=== PATIENT | male | born 1955 | race Caucasian/White ===

== ENCOUNTER 2019-08-16 13:26 | Outpatient (CLI) | payer BC ==
[~2019-08-16 13:26] MED LIST: ALBUTEROL NEB 2.5 MG/3 ML INH SCH
== END 2019-08-16 13:27 | disposition home or self-care (01) ==
LOC: RT 13:26
PROVIDERS: ATTEND Nurse Practitioner
DX: J45.909 Unspecified asthma, uncomplicated (principal)
CPT/HCPCS: 94060; 94664

== ENCOUNTER 2019-09-13 08:04 | Outpatient (CLI) | payer BC ==
[2019-09-13 09:14] LABS: ALBUMIN 3.9 g/dL (3.2-5.5); ALBUMIN/GLOBULIN RATIO 1.1 (1.0-2.2); ALKALINE PHOSPHATASE 49 IU/L (42-121); ALT ALANINE AMINOTRANSFERASE 36 IU/L (10-60); AST ASPARTATE AMINOTRANSFERASE 22 IU/L (10-42); BASOPHILS # (AUTO) 0.1 10^3/uL (0.0-0.1); BASOPHILS % (AUTO) 0.9 %; BILIRUBIN,TOTAL 1.1 mg/dL (0.2-1.0); BUN - BLOOD UREA NITROGEN 22 mg/dL (6-20); CALCIUM 9.3 mg/dL (8.5-10.3); CARBON DIOXIDE - CO2 33 mmol/L (21-32); CHLORIDE 99 mmol/L (101-111); CHOL/HDL RATIO 4.9 (<5.0); CHOLESTEROL 197 mg/dL; CREATININE 0.9 mg/dL (0.6-1.2); EOSINOPHILS # (AUTO) 0.2 10^3/uL (0.0-0.7); EOSINOPHILS % (AUTO) 2.1 %; GFR - MDRD 86 (>89); GLUCOSE 134 mg/dL (70-100); HDL CHOLESTEROL 40 mg/dL; HGB - HEMOGLOBIN 17.4 g/dL (14.0-18.0); LDL CHOLESTEROL,CALCULATED 140 mg/dL; LDL/HDL RATIO 3.5 (<3.6); LYMPHOCYTES % (AUTO) 19.4 %; MEAN CORPUSCULAR HEMOGLOBIN 31.4 pg (27.0-31.0); MEAN CORPUSCULAR HGB CONC 33.1 g/dL (32.0-36.0); MEAN CORPUSCULAR VOLUME 94.9 fL (80.0-94.0); MEAN PLATELET VOLUME 9.9 fL (7.4-11.4); MONOCYTES # (AUTO) 0.9 10^3/uL (0.0-1.0); MONOCYTES % (AUTO) 8.4 %; NEUTROPHILS % (AUTO) 68.4 %; PLT - PLATELET COUNT 239 10^3/uL (130-450); RED BLOOD COUNT 5.54 10^6/uL (4.70-6.10); RED CELL DISTRIBUTION WIDTH 12.2 % (12.0-15.0); SODIUM 137 mmol/L (135-145); TOTAL PROTEIN 7.5 g/dL (6.7-8.2); URIC ACID 8.8 mg/dL (2.6-7.2); VLDL CHOLESTEROL 17 mg/dL; WHITE BLOOD COUNT 10.3 x10^3/uL (4.8-10.8)
[2019-09-13 14:22] LABS: HB2 TOTAL 18.1 g/dL; HEMOGLOBIN A1C 0.94 g/dL; HEMOGLOBIN A1C % 6.9 % (4.6-6.2)
== END 2019-09-13 08:05 | disposition home or self-care (01) ==
LOC: LAB 08:04
PROVIDERS: ATTEND Nurse Practitioner
DX: G89.4 Chronic pain syndrome (principal); E29.1 Testicular hypofunction; E11.9 Type 2 diabetes mellitus without complications; I10 Essential (primary) hypertension; J45.909 Unspecified asthma, uncomplicated; M25.50 Pain in unspecified joint
CPT/HCPCS: 36415; 80053; 80061; 83036; 83721; 84403; 84443; 84550; 85025

== ENCOUNTER 2019-10-20 12:45 | Outpatient (CLI) | payer BC | END 2019-10-20 12:46 | disposition home or self-care (01) | LOC: LAB 12:45 | PROVIDERS: ATTEND Allergy & Immunology | DX: J45.50 Severe persistent asthma, uncomplicated (principal) | CPT/HCPCS: 36415; 81599; 82785 ==

== ENCOUNTER 2019-10-20 12:59 | Outpatient (CLI) | payer BC ==
--- NOTE | 2019-10-20 17:32 | XRAY Report ---
Reason: SEVERE, PERSISTENT ASTHMA Procedure Date: 10/20/2019 Accession Number: [id number] / [id number] Procedure: XR - Chest 2 View X-Ray CPT Code: 58954 Final Report FULL RESULT: EXAM: CHEST RADIOGRAPHY EXAM DATE: 10/20/2019 01:10 PM. CLINICAL HISTORY: Severe, persistent asthma. COMPARISON: XR RIBS UNILAT W/ PA CHEST MIN 3 VIEWS 12/21/2008 6:12 PM. TECHNIQUE: 2 views. FINDINGS: Lungs/Pleura: Large volumes. No focal pneumonia or overt edema. No pneumothorax or effusion. Mediastinum: Within exam limitations, cardiomediastinal contour is normal. Other: Old left rib fractures. IMPRESSION: Large lung volumes, consistent with obstructive airways disease but without acute process seen in the chest. RADIA
== END 2019-10-20 13:00 | disposition home or self-care (01) ==
LOC: DI 12:59
PROVIDERS: ATTEND Allergy & Immunology
DX: J45.50 Severe persistent asthma, uncomplicated (principal)
CPT/HCPCS: 36415; 71046; 81599; 82785

== ENCOUNTER 2020-12-05 07:59 | Outpatient (CLI) | payer BC | END 2020-12-05 08:00 | disposition home or self-care (01) | LOC: DI 07:59 | PROVIDERS: ATTEND Nurse Practitioner | DX: I10 Essential (primary) hypertension (principal); J44.9 Chronic obstructive pulmonary disease, unspecified | CPT/HCPCS: 93306 ==

== ENCOUNTER 2021-07-17 10:22 | Outpatient (CLI) | payer BC ==
[2021-07-17 11:17] VITALS: BP 142/84
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
== END 2021-07-17 10:23 | disposition home or self-care (01) ==
LOC: SC 10:22
PROVIDERS: ATTEND Nurse Practitioner Family
DX: G47.10 Hypersomnia, unspecified (principal); R41.89 Other symptoms and signs involving cognitive functions and awareness; G47.8 Other sleep disorders; R06.81 Apnea, not elsewhere classified; R06.83 Snoring; E66.9 Obesity, unspecified; Z68.38 Body mass index [BMI] 38.0-38.9, adult
CPT/HCPCS: 99203; 99212

== ENCOUNTER 2021-08-13 10:05 | Outpatient (CLI) | payer BC | END 2021-08-13 10:06 | disposition home or self-care (01) | LOC: SC 10:05 | PROVIDERS: ATTEND Nurse Practitioner Family | DX: G47.33 Obstructive sleep apnea (adult) (pediatric) (principal); R09.02 Hypoxemia | CPT/HCPCS: 95806 ==

== ENCOUNTER 2021-08-20 11:29 | Outpatient (CLI) | payer BC ==
[2021-08-20 12:02] VITALS: BP 166/90
--- NOTE | 2021-08-20 12:02 | SLEEP CARE CONSULTATION ---
Information from patient questionnaire entered by Steve Cristobal MA. I have reviewed and concur with the information entered by Steve Cristobal MA. This document represents the service I personally performed and the decisions made by , Pia Alcaraz ARNP. History of Present Illness Service Date and Time: 08/20/2021 1129 Initial [place] Sleepiness Scale score: 19 (in 2020) Current [place] Sleepiness Scale score: 23 (in 2020) Additional HPI information: KRISTEN HAY returns for follow up and results of the recently performed home sleep study. Patient did HST and there was loss of pulse oximetry signal and not enough time for data collection. It was recommended by Dr. Freeman that he repeat the study to obtain accurate results. Sleep Study - Results Prior sleep studies: No Polysomnography/Home Sleep Study results: Physician Impression: The quality of the study is fair due to partial loss of pulse oximetry signal. The available data is less-thanoptimal (> 240 minutes). Please also see the tabulated and graphic data. 1. Obstructive Sleep Apnea-Hypopnea (ICD-10 G47.33), severe, with an AHI of 36.7/hr and stephenie SaO2 of 71%. During the study, the patient had 4 apneas (4 obstructive, 0 central, 0 mixed) and 75 hypopneas. The longest episode lasted 81.5 seconds. The patient did not sleep supine during this study (supine AHI was 0.0 and non-supine, 38.38). 2. Hypoxemia (ICD-10 R09.02), moderate, with the lowest oxygen saturation of 71 % and 91.9 minutes with SaO2 under 90%. Baseline oxygen saturation was low (Average oxygen saturation was 87%). Recommendation: Due to the poor pulse oximetry signal, the low baseline oxygen saturation needs to be confirmed before proceeding with the positive airway pressure therapy. This patient may also need home oxygen therapy. Allergies and Home Medications Known drug allergies: Yes (cats) Home medication list reviewed: Yes (no changes) Review of Systems Review of systems same as previous: Yes (no changes) Physical Exam Vital signs obtained and entered by: BARBARA PANTOJA Blood Pressure: 166/90 (left, just had 24 oz coffee and forgot BP pill) Cuff size: wrist Heart Rate: 85 O2 Saturation: 94 (with mask) Height: 6 ft Weight: 285 lb (with boots ) Body Mass Index: 38.6 BMI Classification: Obese Impression and Plan 1. Suspected Obstructive Sleep Apnea-Hypopnea Syndrome, as suggested by a history of loud and irregular snoring, observed cessation of breath while asleep, frequent awakening during the night, unrefreshed sleep, cognitive impairment, and excessive daytime sleepiness. Patient here for follow up on a HST but the results were considered fair and recommended another study to get accurate measurement due to signal loss. I recommend proceeding to polysomnography to confirm the diagnosis and to assess severity. I obtained agreement to proceed. The pathophysiology of obstructive sleep apnea-hypopnea syndrome was discussed with the patient and health risks of cardiovascular and cerebrovascular disease if not treated. Risks of drowsy driving discussed in detail and patient advised to avoid long distance driving and to chain puller at the first sign of drowsiness. Patient agreed to plan. 2. Elevated blood pressure reading in patient with hypertension. His blood pressure was noted to be 166/90. Patient had not taken his blood pressure medication this morning and just finished a 24 ounce coffee prior to appointment. Patient feeling well today. He was advised to take his medication and follow up with PCP as needed. * Schedule polysomnography +- manual CPAP titration study and return in 1-2 weeks after the study to discuss result and initiate therapy. * Avoid long distance driving or driving when feeling sleepy. * Avoid alcohol, sedative and muscle relaxant around bedtime. * Attempt to lose weight. * Review instructions provided by trained office staff on how to prepare for the sleep study. * Return for follow-up after sleep study completed. Counseling Topics: Weight loss health impact Visit Type: In Office Time Spent with Patient (minutes): 23 Provider Statement: I spent 100% of the Face to Face Visit with the patient with greater than 50% spent counseling the patient and coordination of care.
== END 2021-08-20 11:30 | disposition home or self-care (01) ==
LOC: SC 11:29
PROVIDERS: ATTEND Nurse Practitioner Family
DX: G47.33 Obstructive sleep apnea (adult) (pediatric) (principal); R09.02 Hypoxemia; E66.9 Obesity, unspecified; Z68.38 Body mass index [BMI] 38.0-38.9, adult; I10 Essential (primary) hypertension
CPT/HCPCS: 99212; 99213

== ENCOUNTER 2021-09-04 09:25 | Outpatient (CLI) | payer BC | END 2021-09-04 09:26 | disposition home or self-care (01) | LOC: SC 09:25 | PROVIDERS: ATTEND Nurse Practitioner Family | DX: G47.33 Obstructive sleep apnea (adult) (pediatric) (principal); R09.02 Hypoxemia | CPT/HCPCS: 95806 ==

== ENCOUNTER 2021-09-17 09:33 | Outpatient (CLI) | payer BC ==
[2021-09-17 10:15] VITALS: BP 134/82
--- NOTE | 2021-09-17 10:15 | SLEEP CARE CONSULTATION ---
Information from patient questionnaire entered by Steve Cristobal MA. I have reviewed and concur with the information entered by Steve Cristobal MA. This document represents the service I personally performed and the decisions made by , Pia Alcaraz ARNP. History of Present Illness Service Date and Time: 09/17/2021 0933 Initial [place] Sleepiness Scale score: 19 (in 2020) Current [place] Sleepiness Scale score: 16 (in 2020) Additional HPI information: KRISTEN HAY returns for follow up and results of the recently performed home sleep study. I explained the pathophysiology behind obstructive sleep apnea. We then spent q uite a bit of time discussing different treatment options. For mild obstructive sleep apnea, surgery and oral appliance are alternatives to nasal CPAP therapy but in moderate or severe cases, nasal CPAP is the most effective and reliable treatment. I reviewed the impact of weight changes on sleep apnea and strongly recommended losing weight. After some discussion, the patient opted to go with the nasal CPAP therapy. Nasal autoCPAP set at 4-15 cmH20 will be ordered with rationale explained. A manual titration study will be ordered if unable to find optimal pressure with office adjustments. I explained how CPAP machine works with sample device ResMed [id number] and what to expect when using the machine. Using CPAP every night in order to get used to it was emphasized. Patient advised to put CPAP mask on before getting into bed so as not to fall asleep without CPAP. To assist acclimation to CPAP use, it could also be used for a short time during day while reading or watching TV. The patient was instructed to call the CPAP supplier to discuss any mechanical problem that may occur. If the mask given is uncomfortable or is difficult to keep on through the night even with adjustment, contact the CPAP supplier as many will replace with another mask style if notified before 30 days. If snoring or perceives is not getting enough air or too much air from the machine, notify this office. AASM patient education PAP tips reviewed and given to patient. Patient was cautioned about risks of drowsy driving until sleepiness symptoms resolve. Sleep Study - Results Prior sleep studies: No Polysomnography/Home Sleep Study results: Physician Impression: The quality of the study is good. The length of the study is adequate (> 240 minutes). Please also see the tabulated and graphic data. 1. Obstructive Sleep Apnea-Hypopnea (ICD-10 G47.33), severe, with an AHI of 31.8/hr and stephenie SaO2 of 69%. During the study, the patient had 69 apneas (69 obstructive, 0 central, 0 mixed) and 158 hypopneas. The longest episode lasted 117.5 seconds. The respiratory events occurred independently of sleep stage and body position AHI was 38.5 and non-supine, 31.53). 2. Hypoxemia (ICD-10 R09.02), moderate, with the lowest oxygen saturation of 69 % and 226.6 minutes with SaO2 under 90%. Baseline oxygen saturation was low-normal (Average oxygen saturation was 89%). Allergies and Home Medications Home medication list reviewed: Yes (no changes) Review of Systems Review of systems same as previous: Yes (no changes) Physical Exam Vital signs obtained and entered by: BARBARA PANTOJA Blood Pressure: 134/82 (right) Cuff size: wrist Heart Rate: 94 O2 Saturation: 94 (with mask) Height: 6 ft Weight: 280 lb (with clothes) Body Mass Index: 38.0 BMI Classification: Obese Impression and Plan 1. Obstructive Sleep Apnea-Hypopnea Syndrome, severe, with lowest oxygen saturation of 69%. Obviously this is the cause of the patients symptoms of unrefreshed sleep, and excessive daytime sleepiness. Positive pressure therapy could benefit hypertension, asthma, insulin resistance, depression and attention deficit. As mentioned above, the patient will be started on nasal autoCPAP therapy with pressure set at 5-20 cmH2O. A manual titration study will be completed if unable to find optimal treatment pressure with office adjustments. Compliance guidelines also reviewed. A copy of compliance guidelines will be given for reference at check out. 2. Hypoxemia, moderate, with the lowest oxygen saturation of 69 % and 226.6 minutes with SaO2 under 90%. His baseline oxygen saturation was low-normal with an average oxygen saturation of 89%. * Nasal auto CPAP therapy, pressure at 5-20 cmH2O. * Attempt to lose weight. * Avoid alcohol consumption near bedtime. * Avoid supine sleep until using CPAP. * The patient is again cautioned about driving until sleepiness completely resolves. * Return one month after CPAP obtained. I will assess response to therapy and compliance at that time. Counseling Topics: Weight loss health impact Prescriptions: Auto CPAP Visit Type: In Office Time Spent with Patient (minutes): 22 Provider Statement: I spent 100% of the Face to Face Visit with the patient with greater than 50% spent counseling the patient and coordination of care.
== END 2021-09-17 09:34 | disposition home or self-care (01) ==
LOC: SC 09:33
PROVIDERS: ATTEND Nurse Practitioner Family
DX: G47.33 Obstructive sleep apnea (adult) (pediatric) (principal); R09.02 Hypoxemia; E66.9 Obesity, unspecified; Z68.38 Body mass index [BMI] 38.0-38.9, adult
CPT/HCPCS: 99212; 99213

== ENCOUNTER 2021-10-16 08:00 | Outpatient (CLI) | payer BC | END 2021-10-16 23:59 | disposition home or self-care (01) | LOC: LAB.N 08:00 | PROVIDERS: ATTEND Family Medicine | DX: R05.9 Cough, unspecified (principal); R09.81 Nasal congestion; Z20.822 Contact with and (suspected) exposure to COVID-19 ==

== ENCOUNTER 2021-11-20 10:38 | Outpatient (CLI) | payer BC ==
[2021-11-20 11:40] VITALS: BP 132/95
--- NOTE | 2021-11-20 11:40 | SLEEP CARE CONSULTATION ---
Information from patient questionnaire entered by Steve Preston MA. I have reviewed and concur with the information entered by Steve Preston MA. This document represents the service I personally performed and the decisions made by , Pia Alcaraz ARNP. History of Present Illness Service Date and Time: 11/20/2021 1038 Previous diagnosis: Severe, Obstructive Sleep Apnea-Hypopnea Syndrome AHI: 31.8 Reason for follow up: first compliance ( COMPLIANCE, 10/10/21 SET UP, [employer],) Equipment type: CPAP Equipment obtained from: Other ([facility]; getting supplies, buy ing some due to deductible) Mask style: Full face Backup mask available: No (will need to keep old mask when replace) Last cushion change: 1 week Prior sleep studies: No HPI additional information: KRISTEN HAY was diagnosed to have severe, AHI 31.8, obstructive sleep apnea-hypopnea syndrome and returned today for CPAP therapy first compliance follow-up. Sleep Study - Results Prior sleep studies: No CPAP Compliance Data - Data Reviewed with Patient Average duration of nightly device use: 4 HOURS 7 MINUTES Compliance rate %: 63 Current pressure setting (cmH2O): 14-16 (avg 15.4, max 16.3) Average residual AHI: 5.6 Central apnea: .0 Obstructive apnea: 1.7 Average large leak: 34.8 Subjective Missed days of use due to: reports: mask issues, illness (TROUBLE TAKING A BREATH, ) Patient concerns: reports: air blowing in eyes, mask leak noise, dry mouth, nose, throat (top of nose closed off by top of mask). denies: aerophagia, mask discomfort, condensation in mask/hose, nasal congestion, epistaxis Observed to snore while using device: No Current pressure setting perceived as: comfortable (PRESSURE CHANGE IS PERFECT, BUT THE LEAK IS WORSE.) On therapy, patient: reports: sleeping better, awakening more refreshed, being more awake and alert during the day, more rested overall. denies: drowsiness while driving Initial [place] Sleepiness Scale score: 19 (in 2020) Current [place] Sleepiness Scale score: 8 (2021) Allergies and Home Medications Known drug allergies: Yes (NSAIDS) Drug allergies reviewed: Yes Home medication list reviewed: Yes (no changes) Allergy and home medication list: Allergies diclofenac Adverse Reaction (Verified 10/12/20 11:17) Anaphylaxis NSAIDS (Non-Steroidal Anti-Inflamma Adverse Reaction (Verified 10/12/20 11:17) Itching Review of Systems Review of systems same as previous: Yes (no changes) Physical Exam Vital signs obtained and entered by: BARBARA PRESTON Blood Pressure: 132/95 (RIGHT, PULSE 94, RSP 16) Heart Rate: 53 O2 Saturation: 93 (PAPER MASK, TOOKA FEW DEEP BREATHS NO CHANGE ON 02) Height: 6 ft Weight: 280 lb (PER PATIENT) Weight change since last visit: EXCER EVERY DAY, ROWING MACHINE; no weight change Body Mass Index: 38.0 BMI Classification: Obese Impression and Plan 1. Obstructive Sleep Apnea-Hypopnea Syndrome, severe, with fair treatment compliance and fair apnea control with minimal elevation of residual AHI. On CPAP therapy, the patient has better sleep quality and is more rested overall. Patient very satisfied with current pressure setting with some mask leaks. He states sometimes the full face mask will press on his nose and make him breathe through his mouth. This will dry out his mouth. I recommended he try a ResMed AirFit F30i which is a full face but goes under the nose instead of over the top. He voiced understanding and states he will get one to try. Patient's apnea severity and rationale for treatment to reduce apnea, improve sleep quality and reduce cardiovascular and cerebrovascular events was reviewed. I also reviewed the benefit of consistent device use of CPAP for hypertension, insulin resistance, asthma, gastric reflux, depression and attention deficit. 2. Obesity, unspecified. Currently patients BMI is 38.0. Obesity increases the risk of apnea, CPAP pressure requirements and overall health risks especially cardiovascular and diabetes. Thus patient is advised to lose weight. He is exercising daily now that he has more energy from using the CPAP. Weight loss can be done with reducing portion size, reducing refined foods and balancing content with vegetables, fruit and whole grain foods. * Continue auto CPAP pressure at 14-16 cmH2O * Notify me if snoring with mask or feeling that the pressure is too much or too little * Attempt to lose weight * Call this office if any problems using CPAP * Return for follow up in 1-2 months, or sooner if concerns arise Counseling Topics: Spare mask, Weight loss health impact Visit Type: In Office Time Spent with Patient (minutes): 21 Provider Statement: I spent 100% of the Face to Face Visit with the patient with greater than 50% spent counseling the patient and coordination of care.
== END 2021-11-20 10:39 | disposition home or self-care (01) ==
LOC: SC 10:38
PROVIDERS: ATTEND Nurse Practitioner Family
DX: G47.33 Obstructive sleep apnea (adult) (pediatric) (principal); E66.9 Obesity, unspecified; Z68.38 Body mass index [BMI] 38.0-38.9, adult
CPT/HCPCS: 99212; 99213

== ENCOUNTER 2022-01-14 10:36 | Outpatient (CLI) | payer BC, MEDICARE ==
[2022-01-14 11:31] VITALS: BP 150/95
--- NOTE | 2022-01-14 11:31 | SLEEP CARE CONSULTATION ---
Information from patient questionnaire entered by Steve Cristobal MA. I have reviewed and concur with the information entered by Steve Cristobal MA. This document represents the service I personally performed and the decisions made by , Pia Alcaraz ARNP. History of Present Illness Service Date and Time: 01/14/2022 1036 Previous diagnosis: Severe, Obstructive Sleep Apnea-Hypopnea Syndrome AHI: 31.8 (in 2020) Reason for follow up: other (2 MONTH FU , RESMED, ) Equipment type: CPAP Prior sleep studies: No HPI additional information: KRISTEN HAY was diagnosed to have severe, AHI 31.8, obstructive sleep apnea-hypopnea syndrome and returned today for CPAP therapy 2 month follow-up. Sleep Study - Results Prior sleep studies: No CPAP Compliance Data - Data Reviewed with Patient Average duration of nightly device use: 3 HOURS 15 MINUTES Compliance rate %: 35 Current pressure setting (cmH2O): 14-16 Average residual AHI: 4.3 Central apnea: .0 Obstructive apnea: 1.2 Average large leak: 42.6 Subjective Missed days of use due to: reports: mask issues, illness, travel Patient concerns: reports: mask leak noise, dry mouth, nose, throat. denies: aerophagia, mask discomfort, air blowing in eyes, condensation in mask/hose, nasal congestion, epistaxis, other Observed to snore while using device: No Current pressure setting perceived as: too high On therapy, patient: reports: sleeping better, awakening more refreshed, being more awake and alert during the day, more rested overall. denies: drowsiness while driving Initial [place] Sleepiness Scale score: 19 (in 2020) Current [place] Sleepiness Scale score: 9 (12/2021) Allergies and Home Medications Home medication list reviewed: Yes (no changes) Allergy and home medication list: Allergies diclofenac Adverse Reaction (Verified 10/12/20 11:17) Anaphylaxis NSAIDS (Non-Steroidal Anti-Inflamma Adverse Reaction (Verified 10/12/20 11:17) Itching Review of Systems Review of systems same as previous: Yes (no changes) Physical Exam Vital signs obtained and entered by: BARBARA PANTOJA Blood Pressure: 150/95 (PULSE 105, RESP 18, RIGHT.) Heart Rate: 107 O2 Saturation: 94 Height: 6 ft Weight: 270 lb (PER PT) Weight change since last visit: ROW MACHINE, IS LOOSING WEIGHT, Body Mass Index: 36.6 BMI Classification: Obese Impression and Plan 1. Obstructive Sleep Apnea-Hypopnea Syndrome, severe, with poor treatment compliance and good apnea control. On CPAP therapy, the patient has better sleep quality and is more rested overall. Patient has received phone calls from his DME that he is not in compliance and asking him to return his Airsense 11. He states that he is paying the payments on it because of his high deductible for the insurance and he will be changing to Medicare soon because he just turned 67 yrs old. He was looking online and states he would like to just buy one on his own because it would save him money. He also states the pressure is too high because it is blowing the mask off his face. He states he bought a new AirFit F30i but it won't fit on his head. I had the patient try to put the mask on and he does not have the right headgear strap for his new mask. Using his ResMed F20 mask headgear I was able to show him how the other mask should sit on his face and head. He voiced understanding more about how to use this new mask. He will need to obtain the headgear that goes with his mask to get the proper fit. Patient will go ahead and obtain the headgear on his own. He will talk to the DME supplier about his machine. If they still require him to return it, then he will purchase an APAP on his own and a prescription was supplied to the patient today. I will adjust his pressure to 14-15 cm H20 to help reduce mask air leaks and increase mask comfort. I will follow-up with him in about 3 months to see how he is doing and what changes have been made. He agreed with current plan. Patient's apnea severity and rationale for treatment to reduce apnea, improve sleep quality and reduce cardiovascular and cerebrovascular events was reviewed. I also reviewed the benefit of consistent device use of CPAP for hypertension, gastric reflux, anxiety, insulin resistance, asthma and ADD. 2. Obesity, unspecified. Patient has lost weight. Currently patients BMI is 36.6. Obesity increases the risk of apnea, CPAP pressure requirements and overall health risks especially cardiovascular and diabetes. Thus patient is advised to continue to try to lose weight. Weight loss can be done with reducing portion size, reducing refined foods and balancing content with vegetables, fruit and whole grain foods. In addition, patient encouraged to get regular exercise. The patient's CPAP pressure range should accommodate some weight loss. Symptoms to report for additional pressure adjustment discussed. * Change auto CPAP pressure to 14-15 cmH2O * Prescription for new device * Patient to obtain mask headgear for AirFit F30i. * Notify me if snoring with mask or feeling that the pressure is too much or too little * Continue to try to lose weight * Call this office if any problems using CPAP * Return for follow up in 3 months, or sooner if concerns arise Counseling Topics: Spare mask, Weight loss health impact Visit Type: In Office Time Spent with Patient (minutes): 27 Provider Statement: I spent 100% of the Face to Face Visit with the patient with greater than 50% spent counseling the patient and coordination of care.
== END 2022-01-14 10:37 | disposition home or self-care (01) ==
LOC: SC 10:36
PROVIDERS: ATTEND Nurse Practitioner Family
DX: G47.33 Obstructive sleep apnea (adult) (pediatric) (principal); E66.9 Obesity, unspecified; Z68.36 Body mass index [BMI] 36.0-36.9, adult
CPT/HCPCS: 99212; 99213

== ENCOUNTER 2022-04-08 11:46 | Outpatient (CLI) | payer BC, MEDICARE | END 2022-04-08 11:47 | disposition home or self-care (01) | LOC: SC 11:46 | PROVIDERS: ATTEND Nurse Practitioner Family | DX: Z53.9 Procedure and treatment not carried out, unspecified reason (principal) ==

== ENCOUNTER 2022-11-20 12:39 | Outpatient (CLI) | payer MEDICARE, BC ==
--- NOTE | 2022-11-20 17:42 | XRAY Report ---
PROCEDURE: Chest 2 View X-Ray INDICATIONS: ASTHMA,COUGH,SOA TECHNIQUE: 2 views of the chest were acquired. COMPARISON: None. FINDINGS: Surgical changes and devices: None. Lungs and pleura: No pleural effusions or pneumothorax. Increased perihilar bronchovascular markings without focal infiltrate Mediastinum: Mediastinal contours are normal. Heart size is normal. Bones and chest wall: No suspicious bony abnormalities. Soft tissues appear unremarkable. IMPRESSION: Hyperinflation and increased bronchovascular markings consistent with small vessel disease such as as thma or bronchiolitis Reviewed by: Rafael Calderón MD on 11/20/2022 4:41 PM AKST Approved by: Rafael Calderón MD on 11/20/2022 4:41 PM AKST Station ID: [id number]
== END 2022-11-20 12:40 | disposition home or self-care (01) ==
LOC: DI 12:39
PROVIDERS: ATTEND Family Medicine
DX: J45.40 Moderate persistent asthma, uncomplicated (principal); R06.02 Shortness of breath; R05.9 Cough, unspecified

== ENCOUNTER 2022-11-23 15:50 | Outpatient (CLI) | payer MEDICARE, BC | END 2022-11-23 23:59 | disposition critical access hospital (66) | LOC: EMS 15:50 | DX: R06.03 Acute respiratory distress (principal); R50.9 Fever, unspecified; U07.1 COVID-19 | CPT/HCPCS: A0425; A0429 ==

== ENCOUNTER 2022-11-23 15:58 | Inpatient (IN) | payer MEDICARE, BC ==
[2022-11-23] MEDS ORDERED: IPRATROPIUM/ALBUTEROL 3 ML NEB INH STA (16:31)
[2022-11-23] MEDS ORDERED: methylPREDNISolone SUCCINATE 125 MG/2 ML VIAL IVP STA (16:31)
--- NOTE | 2022-11-23 16:35 | ED Physician Documentation ---
PD HPI URI - Stated complaint Stated Complaint: SOA - Chief complaint Chief Complaint: Resp - History obtained from History obtained from: Patient - History of Present Illness Timing - onset: How many weeks ago (2) Timing duration: Weeks (2) Timing details: Gradual onset Associated symptoms: Fever, Chills, Nasal congestion, Rhinorrhea, Dry cough, Dyspnea, Other (wheezing) Contributing factors: Sick contact, COPD / asthma Recently seen: Not recently seen - Additional information Additional information: Patient states that he was diagnosed with COVID about 2 weeks ago. He states continued coughing, increased difficulty breathing. Has a history of COPD but does not usually use oxygen. He has been using his mother's home oxygen. Increased work of breathing today. Having fevers as well. States had a chest x-ray a few days ago. Patient also took a 5-day course of steroids last week. He has been using DuoNeb therapy 4 times daily. Review of Systems Constitutional: reports: Fever, Chills Respiratory: reports: Dyspnea, Cough, Wheezing GI: denies: Nausea, Vomiting Skin: denies: Rash Musculoskeletal: denies: Neck pain, Back pain Neurologic: denies: Headache PD PAST MEDICAL HISTORY - Past Medical History Past Medical History: Yes Cardiovascular: Hypertension Respiratory: Asthma, COPD, Pneumonia, Shortness of breath, Sleep apnea Neuro: None Endocrine/Autoimmune: Type 2 diabetes GI: None : Frequency HEENT: None Psych: None Musculoskeletal: Gout Derm: None - Past Surgical History Past Surgical History: Yes Ortho: Other Derm: Skin grafts - Present Medications Home Medications: Ambulatory Orders Medication Instructions Recorded Confirmed Albuterol 2 puffs PO DAILY 01/26/20 10/12/20 Budesonide/Formoterol Fumarate 2 puffs IH ACHS 01/26/20 10/12/20 [Symbicort 160-4.5 Mcg Inhaler] Glipizide [Glipizide Xl] 10 mg PO DAILY 01/26/20 11/23/22 Krill/[place]-3/Dha/Epa/Lipids 1,000 mg PO DAILY 01/26/20 10/12/20 [Krill Oil 350 mg Softgel] Lisinopril [Zestril] 20 mg PO DAILY 01/26/20 11/23/22 allopurinoL [Allopurinol] 100 mg PO DAILY 01/26/20 11/23/22 amLODIPine [Norvasc] 10 mg PO DAILY 01/26/20 10/12/20 hydroCHLOROthiazide 5 mg PO DAILY 01/26/20 10/12/20 [Hydrochlorothiazide] Codeine Phosphate/Guaifenesin 10 ml PO Q6HR PRN 11/23/22 11/23/22 [Guaifen-Codeine 100-10 mg/5 ml] Dulaglutide [Trulicity] 1.5 mg SQ Q7D 11/23/22 11/23/22 Losartan [Cozaar] 50 mg PO DAILY 11/23/22 11/23/22 Montelukast [Singulair] 10 mg PO QPM 11/23/22 11/23/22 - Allergies Allergies/Adverse Reactions: Allergies Allergy/AdvReac Type Severity Reaction Status Date / Time diclofenac AdvReac Anaphylaxis Verified 11/23/22 16:15 NSAIDS (Non-Steroidal AdvReac Itching Verified 11/23/22 16:15 Anti-Inflamma - Social History Does the pt smoke?: No Smoking Status: Never smoker Does the pt drink ETOH?: Yes ETOH Use: Liquor Does the pt have substance abuse?: No PD ED PE NORMAL - Vitals Vital signs reviewed: Yes - General General: Alert and oriented X 3, Other (Moderate respiratory distress) - HEENT HEENT: PERRL, Moist mucous membranes - Neck Neck: Supple, no meningeal sign - Cardiac Cardiac: Strong equal pulses, Other (Tachycardic) - Respiratory Respiratory: Other (Diminished breath sounds and wheezing bilaterally) - Abdomen Abdomen: Soft, Non tender, Non distended - Back Back: No spinal TTP - Derm Derm: Warm and dry - Extremities Extremities: No edema, No calf tenderness / cord - Neuro Neuro: Alert and oriented X 3 - Psych Psych: Normal mood, Normal affect Results - Vitals Vitals: Vital Signs - 24 hr 11/23/22 11/23/22 11/23/22 16:15 16:20 17:05 Temperature 38.2 C H Heart Rate 115 H 106 H 85 Respiratory 24 14 22 Rate Blood Pressure 165/77 H 124/64 O2 Saturation 86 L 96 If not protocol 4 4 : Oxygen Flow, liters/minute 11/23/22 18:38 Temperature Heart Rate 103 H Respiratory 23 Rate Blood Pressure 126/67 O2 Saturation 92 If not protocol 4 : Oxygen Flow, liters/minute Oxygen O2 Source Nasal cannula Oxygen Flow Rate 4 - Labs Labs: Laboratory Tests 11/23/22 11/23/22 11/23/22 16:40 16:44 16:44 WBC 24.5 H RBC 4.54 L Hgb 13.9 L Hct 41.1 L MCV 90.5 MCH 30.6 MCHC 33.8 RDW 12.1 Plt Count 223 MPV 9.5 Neut # (Auto) 20.0 H Lymph # (Auto) 1.4 L [place] # (Auto) 2.5 H Eos # (Auto) 0.0 Baso # (Auto) 0.1 Absolute Nucleated RBC 0.00 Band Neuts % (Manual) Not Reportable Abnorm Lymph % (Manual) Not Reportable Nucleated RBC % 0.0 Neutrophils # (Manual) Not Reportable Lymphocytes # (Manual) Not Reportable Monocytes # (Manual) Not Reportable Eosinophils # (Manual) Not Reportable Basophils # (Manual) Not Reportable Differential Comment MANUAL=AUTO DIFF Manual Slide Review Indicated Platelet Estimate NORMAL (130-450,000) Platelet Morphology NORMAL APPEARANCE RBC Morph Micro Appear NORMAL APPEARANCE PT 14.0 H INR 1.3 H APTT 27.1 Sodium Potassium Chloride Carbon Dioxide Anion Gap BUN Creatinine Estimated GFR (MDRD) Glucose Lactic Acid Calcium Total Bilirubin AST ALT Alkaline Phosphatase Total Protein Albumin Globulin Albumin/Globulin Ratio Lipase Nasal Adenovirus (PCR) NOT DETECTED Nasal B. parapertussis DNA (PCR) NOT DETECTED Nasal Coronavir 229E PCR NOT DETECTED Nasal Coronavir HKU1 PCR NOT DETECTED Nasal Coronavir NL63 PCR NOT DETECTED Nasal Coronavir OC43 PCR NOT DETECTED Nasal Enterovir/Rhinovir PCR DETECTED A Nasal Influenza B PCR NOT DETECTED Nasal Influenza A PCR NOT DETECTED Nasal Parainfluen 1 PCR NOT DETECTED Nasal Parainfluen 2 PCR NOT DETECTED Nasal Parainfluen 3 PCR NOT DETECTED Nasal Parainfluen 4 PCR NOT DETECTED Nasal RSV (PCR) NOT DETECTED Nasal B.pertussis DNA PCR NOT DETECTED Nasal C.pneumoniae (PCR) NOT DETECTED Edy Human Metapneumo PCR NOT DETECTED Nasal M.pneumoniae (PCR) NOT DETECTED Nasal SARS-CoV-2 (PCR) DETECTED A 11/23/22 11/23/22 16:44 16:44 WBC RBC Hgb Hct MCV MCH MCHC RDW Plt Count MPV Neut # (Auto) Lymph # (Auto) [place] # (Auto) Eos # (Auto) Baso # (Auto) Absolute Nucleated RBC Band Neuts % (Manual) Abnorm Lymph % (Manual) Nucleated RBC % Neutrophils # (Manual) Lymphocytes # (Manual) Monocytes # (Manual) Eosinophils # (Manual) Basophils # (Manual) Differential Comment Manual Slide Review Platelet Estimate Platelet Morphology RBC Morph Micro Appear PT INR APTT Sodium 129 L Potassium 3.4 L Chloride 89 L Carbon Dioxide 29 Anion Gap 11.0 BUN 25 H Creatinine 1.2 Estimated GFR (MDRD) 61 L Glucose 214 H Lactic Acid 1.0 Calcium 8.9 Total Bilirubin 1.5 H AST 38 ALT 55 Alkaline Phosphatase 98 Total Protein 6.9 Albumin 3.3 Globulin 3.6 Albumin/Globulin Ratio 0.9 L Lipase 37 Nasal Adenovirus (PCR) Nasal B. parapertussis DNA (PCR) Nasal Coronavir 229E PCR Nasal Coronavir HKU1 PCR Nasal Coronavir NL63 PCR Nasal Coronavir OC43 PCR Nasal Enterovir/Rhinovir PCR Nasal Influenza B PCR Nasal Influenza A PCR Nasal Parainfluen 1 PCR Nasal Parainfluen 2 PCR Nasal Parainfluen 3 PCR Nasal Parainfluen 4 PCR Nasal RSV (PCR) Nasal B.pertussis DNA PCR Nasal C.pneumoniae (PCR) Edy Human Metapneumo PCR Nasal M.pneumoniae (PCR) Nasal SARS-CoV-2 (PCR) - Rads (name of study) Chest x-ray Radiology: Final report received, See rad report PD Medical Decision Making - ED course Complexity details: reviewed results, re-evaluated patient, considered differential, d/w patient ED course: Patient is a 67-year-old male who presents to the emergency department, COVID- positive, worsening COPD and what appears to be likely an atypical pneumonia on chest x-ray. His white count is over 24,000. Mild hyponatremia at 129, mild hypochloremia at 89. Elevated blood sugar at 214. Lactate is normal at 1.0. Positive for enterovirus/rhinovirus as well as COVID. Given IV Rocephin and azithromycin. Given IV Solu-Medrol. Given nebulizer treatments. Patient continues to be hypoxic and is requiring supplemental oxygen. Therefore discussed the case with the hospitalist, Dr. Noguera who graciously accepts for admission. This document was made in part using voice recognition software. While efforts are made to proofread this document, sound alike and grammatical errors may occur. Departure - Departure Disposition: [facility] DC/Xfer Clinical Impression: Hypoxia, COPD exacerbation, COVID Condition: Stable Discharge Date/Time: 11/23/22 19:37
[2022-11-23 16:58] LABS: BASOPHILS # (AUTO) 0.1 10^3/uL (0.0-0.1); BASOPHILS % (AUTO) 0.4 %; HCT - HEMATOCRIT 41.1 % (42.0-52.0); HGB - HEMOGLOBIN 13.9 g/dL (14.0-18.0); LYMPHOCYTES # (AUTO) 1.4 10^3/uL (1.5-3.5); LYMPHOCYTES % (AUTO) 5.6 %; MEAN CORPUSCULAR HEMOGLOBIN 30.6 pg (27.0-31.0); MEAN CORPUSCULAR HGB CONC 33.8 g/dL (32.0-36.0); MEAN CORPUSCULAR VOLUME 90.5 fL (80.0-94.0); MEAN PLATELET VOLUME 9.5 fL (7.4-11.4); MONOCYTES # (AUTO) 2.5 10^3/uL (0.0-1.0); MONOCYTES % (AUTO) 10.1 %; NEUTROPHILS % (AUTO) 81.9 %; PLT - PLATELET COUNT 223 10^3/uL (130-450); RED BLOOD COUNT 4.54 10^6/uL (4.70-6.10); RED CELL DISTRIBUTION WIDTH 12.1 % (12.0-15.0); WHITE BLOOD COUNT 24.5 x10^3/uL (4.8-10.8)
[2022-11-23 17:02] LABS: INR 1.3 (0.8-1.2); SLIDE REVIEW? Indicated
[2022-11-23 17:09] LABS: PARTIAL THROMBOPLASTIN TIME 27.1 secs (24.9-33.3)
[2022-11-23 17:10] LABS: ALBUMIN 3.3 g/dL (3.2-5.5); ALBUMIN/GLOBULIN RATIO 0.9 (1.0-2.2); BILIRUBIN,TOTAL 1.5 mg/dL (0.2-1.0); CALCIUM 8.9 mg/dL (8.5-10.3); CREATININE 1.2 mg/dL (0.6-1.2); POTASSIUM 3.4 mmol/L (3.5-5.0); TOTAL PROTEIN 6.9 g/dL (6.7-8.2)
[2022-11-23] MEDS ORDERED: AZITHROMYCIN INJ 500 MG in SODIUM CHLORIDE 0.9% 250 ML IV STA (17:27)
[2022-11-23] MEDS ORDERED: cefTRIAXone 1 GM VIAL IVP STA (17:27)
[2022-11-23 17:42] LABS: DIFFERENTIAL COMMENT MANUAL=AUTO DIFF; PLATELET ESTIMATE, MANUAL NORMAL (130-450,000) (NORMAL); PLATELET MORPHOLOGY NORMAL APPEARANCE (NORMAL); RBC MORPHOLOGY (MULTIPLE) NORMAL APPEARANCE (NORMAL)
[2022-11-23 17:47] LABS: CORONAVIRUS 229E-RESP PCR NOT DETECTED; CORONAVIRUS HKU1-RESP PCR NOT DETECTED; CORONAVIRUS NL63-RESP PCR NOT DETECTED; CORONAVIRUS OC43-RESP PCR NOT DETECTED
--- NOTE | 2022-11-23 17:49 | XRAY Report ---
PROCEDURE: Chest 1 View X-Ray INDICATIONS: cough TECHNIQUE: One view of the chest was acquired. COMPARISON: None. FINDINGS: Heart size within normal limits. Moderate vascular congestion present. Bibasilar atelectasis and or i nfiltrate noted. No pneumothorax or pleural effusion. Osseous structures normal. . IMPRESSION: Moderate vascular congestion without cardiomegaly Reviewed by: Rafael Calderón MD on 11/23/2022 4:48 PM AKST Approved by: Rafael Calderón MD on 11/23/2022 4:48 PM AKST Station ID: [id number]
[2022-11-23 17:50] LABS: B. PARAPERTUSSIS- RESP PCR PAN NOT DETECTED; B. PERTUSSIS- RESP PCR PANEL NOT DETECTED; C. PNEUMONIAE- RESP PCR PANEL NOT DETECTED; HUMAN METAPNEUMOVIRUS NOT DETECTED; INFLUENZA A- RESP PCR PANEL NOT DETECTED; INFLUENZA B - RESP PCR PANEL NOT DETECTED; M. PNEUMONIAE- RESP PCR PANEL NOT DETECTED; PARAINFLUENZA VIRUS 1 NOT DETECTED; PARAINFLUENZA VIRUS 2 NOT DETECTED; PARAINFLUENZA VIRUS 3 NOT DETECTED; PARAINFLUENZA VIRUS 4 NOT DETECTED; RHINOVIRUS/ENTEROVIRUS DETECTED; RSV- RESP PCR PANEL NOT DETECTED; SARS-CoV-2 -RESP PCR PANEL DETECTED
[2022-11-23] MEDS ORDERED: ONDANSETRON 4 MG/2 ML VIAL IVP PRN (18:49)
[2022-11-23] MEDS ORDERED: ACETAMINOPHEN 325 MG TABLET PO PRN (18:49)
[2022-11-23] MEDS ORDERED: SODIUM CHLORIDE FLUSH 0.9% 10 ML SYRINGE IVP PRN (18:49)
--- NOTE | 2022-11-23 19:02 | HISTORY & PHYSICAL EXAMINATION ---
Chief Complaint - Chief Complaint Chief Complaint: SOA History of Present Illness - Admitted From Admitted From:: ED - History Obtained From History obtained from: ED provider and the patient - History of Present Illness HPI Comment/Other: This is a 67-year-old male with a history of obesity, diabetes on oral agents Trulicity and glipizide, history of hypertension, DIANE not using his home CPAP, and asthma/COPD not on home oxygen but has a home nebulizer machine. He developed a cough for the past 1-2 weeks. He increased his nebulizer use from daily to 4 times a day. He did a home COVID test and tested negative. He went to see his provider and was was prescribed antibiotics and oral steroids. He repeated his home COVID test that day and tested positive. He called his doctor to ask if he should take the antibiotics and was told to just take the steroids which he took for 5 days and there was no improvement. He has had worsening shortness of breath, with orthopnea and was even "using his mother's home oxygen". Today he called EMS, and with EMS at the scene his O2 sat was initially 70%. In the ER, an oxygen saturation on room air was 86%. Patient has a temperature of 38.2 C in ER. He was wheezing in the ED and received 1 nebulizer DuoNeb treatment. He was also given Solu-Medrol IV 125 mg x1, Rocephin and Zithromax. Labs show that he has an elevated white blood count of 24 (but has had 5 days of steroids recently), mild hyponatremia with sodium 129, glucose 200, he is COVID-positive and rhinovirus positive. Chest x-ray was read as having diffuse interstitial changes and bilateral atelectasis versus infiltrates as well. The patient was discussed by the ED provider talking to me on the Hospitalist Team. The patient will be admitted for treating COVID-pneumonia, COPD with exacerbation, acute hypoxia, and managing his underlying diabetes mellitus (which is expected to have high glu on steroids). I discussed his CODE BLUE wishes and he wants to be a Full Code, including intubation. History - Past Medical History Cardiovascular: reports: Hypertension Respiratory: reports: Asthma, COPD, Pneumonia, Shortness of breath, Sleep apnea Neuro: reports: None Endocrine/Autoimmune: reports: Type 2 diabetes GI: reports: None : reports: Frequency HEENT: reports: None Psych: reports: None Musculoskeletal: reports: Gout Derm: reports: None MRSA Hx?: No - Past Surgical History Ortho: reports: Other Derm: reports: Skin grafts - Family & Social History Family History: Mother: Alive and Well, COPD/Emphysema Living arrangement: At home Social History Notes: He never smoked cigarettes. He drinks rare bourbon, no history of alcohol abuse - Substance History Use: Uses substance without health or social issues: NONE Meds/Allgy - Home Medications Home Medications: Ambulatory Orders Medication Instructions Recorded Confirmed Albuterol 2 puffs PO DAILY 01/26/20 10/12/20 Budesonide/Formoterol Fumarate 2 puffs IH ACHS 01/26/20 10/12/20 [Symbicort 160-4.5 Mcg Inhaler] Glipizide [Glipizide Xl] 10 mg PO DAILY 01/26/20 11/23/22 Krill/[place]-3/Dha/Epa/Lipids 1,000 mg PO DAILY 01/26/20 10/12/20 [Krill Oil 350 mg Softgel] allopurinoL [Allopurinol] 100 mg PO DAILY 01/26/20 11/23/22 amLODIPine [Norvasc] 10 mg PO DAILY 01/26/20 10/12/20 hydroCHLOROthiazide 5 mg PO DAILY 01/26/20 10/12/20 [Hydrochlorothiazide] Codeine Phosphate/Guaifenesin 10 ml PO Q6HR PRN 11/23/22 11/23/22 [Guaifen-Codeine 100-10 mg/5 ml] Dulaglutide [Trulicity] 1.5 mg SQ Q7D 11/23/22 11/23/22 Losartan [Cozaar] 50 mg PO DAILY 11/23/22 11/23/22 Montelukast [Singulair] 10 mg PO QPM 11/23/22 11/23/22 - Allergies Allergies/Adverse Reactions: Allergies Allergy/AdvReac Type Severity Reaction Status Date / Time diclofenac AdvReac Anaphylaxis Verified 11/23/22 16:15 NSAIDS (Non-Steroidal AdvReac Itching Verified 11/23/22 16:15 Anti-Inflamma Review of Systems - Constitutional Constitutional: reports: Fever - Respiratory Respiratory: reports: Cough, Sputum production, Orthopnea, SOB at rest, SOB with exertion - All Other Systems All Other Systems: reports: Reviewed and negative Exam - Vital Signs Reviewed Vital Signs: Yes Vital Signs: Vital Signs x48h Temp Pulse Resp BP Pulse Ox O2 Flow Rate 11/23/22 18:38 103 H 23 126/67 92 4 11/23/22 17:05 85 22 4 11/23/22 16:20 106 H 14 124/64 96 4 11/23/22 16:15 38.2 C H 115 H 24 165/77 H 86 L - Physical Exam General Appearance: positive: No acute distress Eyes Bilateral: positive: Normal inspection, EOMI ENT: positive: ENT inspection nml, Other (wearing O2 per nasal cannula) Neck: positive: Nml inspection, Other (Cannot evaluate JVP, has a long and thick quach) Respiratory: positive: Other (remote exam was done) Cardiovascular: positive: Regular rate & rhythm (remote exam done) Abdomen: positive: Other (obese) Skin: positive: Warm, Dry Extremities: positive: Non-tender, No pedal edema Neurologic/Psychiatric: positive: Oriented x3, Motor nml Sepsis Event Note (H) - Sepsis Criteria Sepsis Criteria: Recorded Heart Rate greater than 90 bpm, Respiratory: Increasing oxygen requirements, WBC count greater than 12,000 or less than 4000 Conclusion/Plan - Problem List (1) Acute respiratory failure with hypoxia Conclusion/Plan: This is caused by his COPD exacerbation and pneumonia and Covid infection Plan: Supplemental oxygen will be ordered, target O2 saturations 90 to 93%, and his COPDer Treat the underlying problems (2) Pneumonia due to COVID-19 virus Conclusion/Plan: Plan: Respiratory isolation We will start remdesivir since he has criteria of being hypoxic but not on a ventilator and COVID-positive recently diagnosed (6 days ago was his pos Covid result). Continue with IV steroids as well (3) COPD exacerbation Conclusion/Plan: Plan: Continue with MDI bronchodilators, 4 times daily scheduled and every 4 hours as needed Continue with IV steroids Continue with his montelukast Will order Mucinex for pulmonary toilet (4) DM type 2 (diabetes mellitus, type 2) Conclusion/Plan: Plan: Diabetic diet Hypoglycemia protocol, fingerstick checks, SS insulin coverage We will resume his glipizide Will very likely need long-acting insulin to while he is being treated on IV steroids - Lab Results Fish Bones: 11/24/22 05:12 11/24/22 05:12 - Diagnostic Imaging Results Diagnostic Imaging Results: positive: Final report reviewed - Other Other Results/Comments: Attestation: The patient is expected to be discharged or transferred to another facility within 96 hours: Yes.
[2022-11-23] MEDS ORDERED: ALBUTEROL NEB 2.5 MG/3 ML INH ONE (20:00)
[2022-11-23] MEDS: SODIUM CHLORIDE 0.9% 1,000 ML IV SCH (20:38)
[2022-11-23] MEDS ORDERED: INSULIN LISPRO 300 UNIT/3 ML PEN SUBQ SCH (21:00)
[2022-11-23 21:20] LABS: BILIRUBIN,URINE NEGATIVE (NEGATIVE); GLUCOSE, URINE (UA) NEGATIVE (NEGATIVE); KETONES,URINE (UA) TRACE mg/dL (NEGATIVE); LEUKOCYTE ESTERASE, URINE NEGATIVE (NEGATIVE); NITRITE,URINE NEGATIVE (NEGATIVE); OCCULT BLOOD,URINE NEGATIVE (NEGATIVE); PROTEIN,URINE NEGATIVE (NEGATIVE); UROBILINOGEN,URINE 1 (NORMAL) E.U./dL (NORMAL)
[2022-11-23 21:21] LABS: CLARITY,URINE CLEAR (CLEAR)
[2022-11-23] MEDS: MONTELUKAST 10 MG TABLET PO SCH (21:44)
[2022-11-23] MEDS: SACCHAROMYCES BOULARDII 250 MG CAPSULE PO SCH (21:44)
[2022-11-23] MEDS: IPRATROPIUM/ALBUTEROL 3 ML NEB INH PRN (22:59)
[2022-11-24] MEDS: SODIUM CHLORIDE FLUSH 0.9% 10 ML SYRINGE IVP SCH ×3 (01:19→16:54)
[2022-11-24 05:51] LABS: BASOPHILS % (AUTO) 0.4 %; HCT - HEMATOCRIT 41.7 % (42.0-52.0); LYMPHOCYTES % (AUTO) 5.3 %; MEAN CORPUSCULAR HEMOGLOBIN 30.6 pg (27.0-31.0); MEAN CORPUSCULAR HGB CONC 33.6 g/dL (32.0-36.0); MEAN CORPUSCULAR VOLUME 91.2 fL (80.0-94.0); MEAN PLATELET VOLUME 9.9 fL (7.4-11.4); MONOCYTES % (AUTO) 3.1 %; PLT - PLATELET COUNT 221 10^3/uL (130-450); RED BLOOD COUNT 4.57 10^6/uL (4.70-6.10); WHITE BLOOD COUNT 22.3 x10^3/uL (4.8-10.8)
[2022-11-24 05:55] LABS: ABNORMAL LYMPHS % (MANUAL) 0 %
[2022-11-24 06:00] LABS: CALCIUM 8.4 mg/dL (8.5-10.3); CREATININE 1.1 mg/dL (0.6-1.2); POTASSIUM 3.9 mmol/L (3.5-5.0)
[2022-11-24 06:11] LABS: BAND NEUTROPHILS % (MANUAL) 4 %; DIFFERENTIAL COMMENT MANUAL DIFFERENTIAL; LYMPHOCYTES # (MANUAL) 1.3 10^3/uL (1.5-3.5); LYMPHOCYTES % (MANUAL) 6 %; MONOCYTES # (MANUAL) 0.7 10^3/uL (0.0-1.0); MYELOCYTES % (MANUAL) 1 %; NEUTROPHILS # (MANUAL) 20.1 10^3/uL (1.5-6.6); PLATELET ESTIMATE, MANUAL NORMAL (130-450,000) (NORMAL); PLATELET MORPHOLOGY NORMAL APPEARANCE (NORMAL); RBC MORPHOLOGY (MULTIPLE) NORMAL APPEARANCE (NORMAL); WBC MORPHOLOGY (MULTIPLE) NORMAL APPEARANCE (NORMAL)
[2022-11-24] MEDS ORDERED: IPRATROPIUM/ALBUTEROL 3 ML NEB INH SCH (07:00)
[2022-11-24] MEDS: ALBUTEROL 1 PUFF INH SCH ×4 (07:00→18:52)
[2022-11-24] MEDS ORDERED: BUDESONIDE 0.5 MG/2 ML NEB INH SCH (08:00)
[2022-11-24] MEDS ORDERED: FORMOTEROL FUMARATE NEB 20 MCG/2 ML INH SCH (08:00)
[2022-11-24] MEDS ORDERED: INSULIN LISPRO 300 UNIT/3 ML PEN SUBQ SCH ×2 (08:00→12:00)
[2022-11-24] MEDS: allopurinoL 100 MG TABLET PO SCH (08:29)
[2022-11-24] MEDS: cefTRIAXone 1 GM in SODIUM CHLORIDE 0.9% MINIBAG 100 ML IV SCH (08:29)
[2022-11-24] MEDS: AZITHROMYCIN 250 MG TABLET PO SCH (08:29)
[2022-11-24] MEDS: SACCHAROMYCES BOULARDII 250 MG CAPSULE PO SCH ×2 (08:29→20:53)
[2022-11-24] MEDS: ENOXAPARIN 40 MG/0.4 ML SYRINGE SUBQ SCH (08:29)
[2022-11-24] MEDS ORDERED: polyethylene glycoL 3350 17 GM PACKET PO SCH (09:00)
[2022-11-24] MEDS: DEXAMETHASONE 4 MG/ML VIAL IVP SCH (12:10)
[2022-11-24] MEDS: guaiFENesin 600 MG TABLET PO SCH ×2 (12:10→20:53)
[2022-11-24] MEDS: LOSARTAN 50 MG TABLET PO SCH (12:10)
--- NOTE | 2022-11-24 12:51 | PHARMACY PROGRESS NOTE ---
- Best Possible Medication History Admit Date and Time: 11/23/22 1849 Processed by: Pharmacy Medication History completed: Yes Secondary Source(s): Pharmacy records, Insurance records, Previous admit records As the person ultimately responsible for medication therapy, providers are able to order a medication from an existing home medication list in [facility] via the "Reconcile Routine" prior to Confirmation of that medication by support specialist. Such practice is discouraged except when the physician, in their clinical judgment, deems that a medical need exists for a medication without regard to previous use.
[2022-11-24 14:09] LABS: ESTIMATED AVERAGE GLUCOSE 186 mg/dL (70-100); HEMOGLOBIN A1c% 8.1 % (4.27-6.07)
[2022-11-24] MEDS ORDERED: REMDESIVIR 100MG VIAL 200 MG in SODIUM CHLORIDE 0.9% 250 ML IV ONE (14:30)
--- NOTE | 2022-11-24 14:30 | PROVIDER PROGRESS NOTE ---
Assessment/Plan - Problem List (1) Acute respiratory failure with hypoxia Assessment/Plan: This is caused by his COPD exacerbation and pneumonia and Covid infection Plan: Supplemental oxygento continue with target O2 saturations 90 to 93% in a COPDer Treat the underlying problems (2) Pneumonia due to COVID-19 virus Conclusion/Plan: Details were obtained from the pt today (after he checked his calandar): He started to cough and feel SOB about a week ago, tested negative for COVID on 11/19/2022 and positive for COVID on 11/20/2022. He therefore qualifies to start remdesivir since the big viral load that turned his test positive was just 4 days ago, and sx started a week ago. The ER triage wrote that his COVID test was positive 2 weeks ago, and that is incorrect. This was communicated to Pharmacy today. Plan: Respiratory isolation We will start remdesivir since he has criteria of being hypoxic but not on a ventilator and COVID-positive recently diagnosed Continue with IV steroids, Decadron ordered. We are continuing his empiric antibx of Zithromax and ceftriaxone, given his longstanding COPD Hx with an exacerbation now. (3) COPD exacerbation Conclusion/Plan: He has many yr Hx of Asthma/COPD and has a home Nebulizer machine, but has never needed home oxygen. Plan: Continue with MDI bronchodilators, 4 times daily scheduled and every 4 hours as needed Continue with IV steroids Continue with his montelukast Continue Mucinex for pulmonary toilet (4) DM type 2 (diabetes mellitus, type 2) Conclusion/Plan: A1c not back yet. We ar3e expecting high glu values while on steroids. Plan: Diabetic diet Hypoglycemia protocol, fingerstick checks, SS insulin coverage We will resume his glipizide Will very likely need long-acting insulin to while he is being treated on IV steroids - Current Meds Current Meds: Current Medications Generic Name Dose Route Start Last Admin Trade Name Freq PRN Reason Stop Dose Admin Albuterol/Ipratropium 3 ml 11/23/22 20:30 11/23/22 22:59 Ipratropium/Albuterol 3 Ml Neb INH 3 ml Q4HR PRN Administration Wheezing Allopurinol 100 mg 11/24/22 09:00 11/24/22 08:29 Allopurinol 100 Mg Tablet PO 100 mg DAILY LYLA Administration Azithromycin 500 mg 11/24/22 09:00 11/24/22 08:29 Azithromycin 250 Mg Tablet PO 11/26/22 00:01 500 mg DAILY LYLA Administration Dexamethasone 6 mg 11/24/22 11:00 11/24/22 12:10 Dexamethasone 4 Mg/Ml Vial IVP 6 mg DAILY LYLA Administration Enoxaparin Sodium 40 mg 11/24/22 09:00 11/24/22 08:29 Enoxaparin 40 Mg/0.4 Ml Syringe SUBQ 40 mg DAILY LYLA Administration Glipizide 10 mg 11/24/22 12:00 11/24/22 12:10 Glipizide Er 2.5 Mg Tablet PO 10 mg DAILY LYLA Administration Guaifenesin 600 mg 11/24/22 11:00 11/24/22 12:10 Guaifenesin 600 Mg Tablet PO 600 mg BID LYLA Administration Sodium Chloride 1,000 mls @ 40 mls/hr 11/23/22 19:00 11/24/22 10:30 Normal Saline 0.9% IV 40 mls/hr .Q25H LYLA Infusion Ceftriaxone Sodium 1 gm/ 100 mls @ 200 mls/hr 11/24/22 09:00 11/24/22 08:59 Sodium Chloride IV Infused DAILY LYLA Infusion Insulin Human Lispro 2 - 10 unit 11/24/22 12:00 11/24/22 12:09 Insulin Lispro 300 Unit/3 Ml Pen SUBQ 10 unit 0800,1200,1700,2100 LYLA Administration Protocol Losartan Potassium 50 mg 11/24/22 11:00 11/24/22 12:10 Losartan 50 Mg Tablet PO 50 mg DAILY LYLA Administration Montelukast Sodium 10 mg 11/23/22 21:00 11/23/22 21:44 Montelukast 10 Mg Tablet PO 10 mg QPM LYLA Administration Saccharomyces Boulardii 250 mg 11/23/22 21:00 11/24/22 08:29 Saccharomyces Boulardii 250 Mg Capsule PO 250 mg BID LYLA Administration Sodium Chloride 10 ml 11/24/22 01:00 11/24/22 08:30 Sodium Chloride Flush 0.9% 10 Ml Syringe IVP Not Given 0100,0900,1700 LLYA - Lab Result Fish Bone Diagrams: 11/24/22 05:12 11/24/22 05:12 - Additional Planning My Orders: My Active Orders 11/23/22 Dinner Carb-controlled Diet [DIET] 11/23/22 18:49 Activity Orders [RC] Q2HR Home CPAP/BiPAP/NPPV [RC] .ONCE IO [RC] IOSHIFT Incentive Spirometry - RT [RC] TID Initiate Bowel Care Protocol [RC] .protocol Initiate Bronchodialator Varun [RC] .PROTOCOL Initiate Line Care Protocol [RC] QSHIFT Initiate Lung Inflation Protoc [RC] .PROTOCOL Initiate Personal Care Protoco [RC] .protocol Initiate Secretion Clearance P [RC] .PROTOCOL Oxygen Therapy [RC] .PRN Telemetry (24 Hour) [RC] Q4HR Vital Signs [RC] Q4HR Acetaminophen [Tylenol] 650 mg PO Q4HR PRN Ondansetron Inj [Zofran Inj] 4 mg IVP Q6HR PRN Sodium Chloride Flush 0.9% [Normal Saline Flush 0.9%] 10 ml IVP PRN PRN Code Status [OTHERS] Routine Condition of Patient [OTHERS] Routine DVT Prophylaxis [OTHERS] Routine 11/23/22 18:51 Daily Weight [RC] 0600 11/23/22 18:53 Isolation [Infection Precautions] [RC] QSHIFT 11/23/22 18:55 Blood Glucose Checks - Eating [RC] 0800,1200,1700,2100 Initiate Hypoglycemia Protocol [RC] .protocol 11/23/22 18:57 Resp Teach Nebulizer/MDI [RC] .ONCE ED Nebulizer/MDI Tx. ONCE 11/23/22 19:00 Sodium Chloride 0.9% [Normal Saline 0.9%] 1,000 ml IV 40 mls/hr 11/23/22 20:16 Nebulizer/MDI Tx. [RC] QID 11/23/22 20:29 Miscellaenous Nursing Order [RC] QSHIFT 11/23/22 20:30 Nebulizer/MDI Tx. [RC] QID Resp Teach Nebulizer/MDI [RC] .ONCE Ipratropium/Albuterol [Duoneb] 3 ml INH Q4HR PRN 11/23/22 21:00 Montelukast [Singulair] 10 mg PO QPM Saccharomyces Boulardii [Florastor] 250 mg PO BID 11/24/22 01:00 Sodium Chloride Flush 0.9% [Normal Saline Flush 0.9%] 10 ml IVP 0100,0900,1700 11/24/22 09:00 Azithromycin [Zithromax] 500 mg PO DAILY Enoxaparin [Lovenox] 40 mg SUBQ DAILY allopurinoL [Zyloprim] 100 mg PO DAILY cefTRIAXone [Rocephin] 1 gm Sodium Chloride 0.9% Minibag [Normal Saline 0.9% Minibag] 100 ml IV DAILY 11/24/22 11:00 Losartan [Cozaar] 50 mg PO DAILY dexAMETHasone [Decadron] 6 mg IVP DAILY guaiFENesin [Mucinex] 600 mg PO BID 11/24/22 11:19 Mdi: Albuterol 2 puffs INH RTQID 11/24/22 12:00 Insulin Lispro [Humalog Kwikpen U-100] 2 - 10 unit SUBQ 0800,1200,1700,2100 glipiZIDE ER [Glucotrol Xl] 10 mg PO DAILY 11/24/22 14:30 Remdesivir 100Mg Vial [Veklury] 200 mg Sodium Chloride 0.9% [Normal Saline 0.9%] 250 ml IV ONCE 11/24/22 17:00 Cholecalciferol [Vitamin D3] 50 mcg PO DAILY 11/24/22 21:00 Insulin Glargine-Yfgn [Semglee] 8 unit SUBQ BID 11/25/22 05:00 BMP - BASIC METABOLIC PANEL [CHEM] DAILYLAB CBC - COMP BLD CT W/AUTO DIFF [HEME] DAILYLAB 11/25/22 09:00 Remdesivir 100Mg Vial [Veklury] 100 mg Sodium Chloride 0.9% 100Ml [Normal Saline 0.9% 100Ml] 100 ml IV DAILY 11/26/22 05:00 BMP - BASIC METABOLIC PANEL [CHEM] DAILYLAB CBC - COMP BLD CT W/AUTO DIFF [HEME] DAILYLAB 11/27/22 05:00 BMP - BASIC METABOLIC PANEL [CHEM] DAILYLAB CBC - COMP BLD CT W/AUTO DIFF [HEME] DAILYLAB 11/28/22 05:00 BMP - BASIC METABOLIC PANEL [CHEM] DAILYLAB CBC - COMP BLD CT W/AUTO DIFF [HEME] DAILYLAB Subjective - Subjective Patient Reports: Feeling Better (Less short of breath ever since admitted, on supplemental oxygen. Has a cough but has minimal production of sputum) Objective Vital Signs: Vital Signs - 24 hr 11/23/22 11/23/22 11/23/22 16:15 16:20 17:05 Temperature 38.2 C H Heart Rate 115 H 106 H 85 Heart Rate [ Brachial] Respiratory 24 14 22 Rate Blood Pressure 165/77 H 124/64 Blood Pressure [Left Brachial artery] Blood Pressure [Right Brachial artery] O2 Saturation 86 L 96 If not protocol 4 4 : Oxygen Flow, liters/minute 11/23/22 11/23/22 11/23/22 18:38 19:35 19:50 Temperature 37.7 C Heart Rate 103 H Heart Rate [ Brachial] Respiratory 23 20 Rate Blood Pressure 126/67 Blood Pressure [Left Brachial artery] Blood Pressure 148/85 H [Right Brachial artery] O2 Saturation 92 92 If not protocol 4 5 5 : Oxygen Flow, liters/minute 11/23/22 11/23/22 11/23/22 20:17 22:04 23:51 Temperature 36.5 C Heart Rate 87 Heart Rate [ 97 91 Brachial] Respiratory 19 20 20 Rate Blood Pressure Blood Pressure [Left Brachial artery] Blood Pressure 124/87 H [Right Brachial artery] O2 Saturation 91 L 94 If not protocol 5 5 5 : Oxygen Flow, liters/minute 11/24/22 11/24/22 11/24/22 01:13 01:58 03:22 Temperature 36.4 C L Heart Rate 79 Heart Rate [ 88 Brachial] Respiratory 18 20 Rate Blood Pressure Blood Pressure [Left Brachial artery] Blood Pressure 122/67 [Right Brachial artery] O2 Saturation 90 L If not protocol 5 5 5 : Oxygen Flow, liters/minute 11/24/22 11/24/22 11/24/22 07:17 07:50 08:30 Temperature 36.3 C L Heart Rate Heart Rate [ 81 Brachial] Respiratory 20 Rate Blood Pressure Blood Pressure [Left Brachial artery] Blood Pressure 116/68 [Right Brachial artery] O2 Saturation 93 89 L If not protocol 5 4 3 : Oxygen Flow, liters/minute 11/24/22 11/24/22 08:35 11:40 Temperature 36.6 C Heart Rate Heart Rate [ 88 Brachial] Respiratory 18 Rate Blood Pressure Blood Pressure 124/69 [Left Brachial artery] Blood Pressure [Right Brachial artery] O2 Saturation 93 92 If not protocol 4 4 : Oxygen Flow, liters/minute Oxygen O2 Source Nasal cannula Oxygen Flow Rate 4 I&O (Last 24 Hrs): Intake and Output Totals x24h 11/22/22 11/23/22 11/24/22 23:59 23:59 23:59 Intake Total 920 1981.333 Output Total 500 1400 Balance 420 581.333 General: Alert, Oriented x3 HEENT: Atraumatic, Mucous membr. moist/pink Neck: Supple Neuro: Alert, Non Focal Cardiovascular: Regular rate Respiratory: No respiratory distress (wearing suppl O2 via n.c.) Abdomen: No tenderness Extremities: No edema - Results Results: Laboratory Results WBC 22.3 x10^3/uL (4.8-10.8) H 11/24/22 05:12 RBC 4.57 10^6/uL (4.70-6.10) L 11/24/22 05:12 Hgb 14.0 g/dL (14.0-18.0) 11/24/22 05:12 Hct 41.7 % (42.0-52.0) L 11/24/22 05:12 MCV 91.2 fL (80.0-94.0) 11/24/22 05:12 MCH 30.6 pg (27.0-31.0) 11/24/22 05:12 MCHC 33.6 g/dL (32.0-36.0) 11/24/22 05:12 RDW 12.0 % (12.0-15.0) 11/24/22 05:12 Plt Count 221 10^3/uL (130-450) 11/24/22 05:12 MPV 9.9 fL (7.4-11.4) 11/24/22 05:12 Neut # (Auto) Not Reportable 11/24/22 05:12 Lymph # (Auto) Not Reportable 11/24/22 05:12 [place] # (Auto) Not Reportable 11/24/22 05:12 Eos # (Auto) Not Reportable 11/24/22 05:12 Baso # (Auto) Not Reportable 11/24/22 05:12 Absolute Nucleated RBC Not Reportable 11/24/22 05:12 Total Counted 100 11/24/22 05:12 Band Neuts % (Manual) 4 % (0-10) 11/24/22 05:12 Abnorm Lymph % (Manual) 0 % 11/24/22 05:12 Myelocytes % 1 % (-0) H 11/24/22 05:12 Nucleated RBC % Not Reportable 11/24/22 05:12 Neutrophils # (Manual) 20.1 10^3/uL (1.5-6.6) H 11/24/22 05:12 Lymphocytes # (Manual) 1.3 10^3/uL (1.5-3.5) L 11/24/22 05:12 Monocytes # (Manual) 0.7 10^3/uL (0.0-1.0) 11/24/22 05:12 Eosinophils # (Manual) 0.0 10^3/uL (0-0.7) 11/24/22 05:12 Basophils # (Manual) 0.0 10^3/uL (0-0.1) 11/24/22 05:12 Differential Comment MANUAL DIFFERENTIAL 11/24/22 05:12 Manual Slide Review Indicated 11/23/22 16:44 WBC Morphology NORMAL APPEARANCE (NORMAL) 11/24/22 05:12 Platelet Estimate NORMAL (130-450,000) (NORMAL) 11/24/22 05:12 Platelet Morphology NORMAL APPEARANCE (NORMAL) 11/24/22 05:12 RBC Morph Micro Appear NORMAL APPEARANCE (NORMAL) 11/24/22 05:12 PT 14.0 secs (9.9-12.6) H 11/23/22 16:44 INR 1.3 (0.8-1.2) H 11/23/22 16:44 APTT 27.1 secs (24.9-33.3) 11/23/22 16:44 Sodium 132 mmol/L (135-145) L 11/24/22 05:12 Potassium 3.9 mmol/L (3.5-5.0) 11/24/22 05:12 Chloride 92 mmol/L (101-111) L 11/24/22 05:12 Carbon Dioxide 29 mmol/L (21-32) 11/24/22 05:12 Anion Gap 11.0 (6-13) 11/24/22 05:12 BUN 29 mg/dL (6-20) H 11/24/22 05:12 Creatinine 1.1 mg/dL (0.6-1.2) 11/24/22 05:12 Estimated GFR (MDRD) 67 (>89) L 11/24/22 05:12 Glucose 406 mg/dL (70-100) H 11/24/22 05:12 Estimat Average Glucose 186 mg/dL (70-100) H 11/24/22 05:12 Hemoglobin A1c % 8.1 % (4.27-6.07) H 11/24/22 05:12 Lactic Acid 1.0 mmol/L (0.5-2.2) 11/23/22 16:44 Calcium 8.4 mg/dL (8.5-10.3) L 11/24/22 05:12 Total Bilirubin 1.5 mg/dL (0.2-1.0) H 11/23/22 16:44 AST 38 IU/L (10-42) 11/23/22 16:44 ALT 55 IU/L (10-60) 11/23/22 16:44 Alkaline Phosphatase 98 IU/L (42-121) 11/23/22 16:44 Total Protein 6.9 g/dL (6.7-8.2) 11/23/22 16:44 Albumin 3.3 g/dL (3.2-5.5) 11/23/22 16:44 Globulin 3.6 g/dL (2.1-4.2) 11/23/22 16:44 Albumin/Globulin Ratio 0.9 (1.0-2.2) L 11/23/22 16:44 Lipase 37 U/L (22-51) 11/23/22 16:44 Urine Color YELLOW 11/23/22 20:45 Urine Clarity CLEAR (CLEAR) 11/23/22 20:45 Urine pH 6.0 PH (5.0-7.5) 11/23/22 20:45 Ur Specific [place] 1.010 (1.002-1.030) 11/23/22 20:45 Urine Protein NEGATIVE mg/dL (NEGATIVE) 11/23/22 20:45 Urine Glucose (UA) NEGATIVE mg/dL (NEGATIVE) 11/23/22 20:45 Urine Ketones TRACE mg/dL (NEGATIVE) 11/23/22 20:45 Urine Occult Blood NEGATIVE (NEGATIVE) 11/23/22 20:45 Urine Nitrite NEGATIVE (NEGATIVE) 11/23/22 20:45 Urine Bilirubin NEGATIVE (NEGATIVE) 11/23/22 20:45 Urine Urobilinogen 1 (NORMAL) E.U./dL (NORMAL) 11/23/22 20:45 Ur Leukocyte Esterase NEGATIVE (NEGATIVE) 11/23/22 20:45 Ur Microscopic Review NOT INDICATED 11/23/22 20:45 Urine Culture Comments NOT INDICATED 11/23/22 20:45 Nasal Adenovirus (PCR) NOT DETECTED 11/23/22 16:40 Nasal B. parapertussis DNA (PCR) NOT DETECTED 11/23/22 16:40 Nasal Coronavir 229E PCR NOT DETECTED 11/23/22 16:40 Nasal Coronavir HKU1 PCR NOT DETECTED 11/23/22 16:40 Nasal Coronavir NL63 PCR NOT DETECTED 11/23/22 16:40 Nasal Coronavir OC43 PCR NOT DETECTED 11/23/22 16:40 Nasal Enterovir/Rhinovir PCR DETECTED A 11/23/22 16:40 Nasal Influenza B PCR NOT DETECTED 11/23/22 16:40 Nasal Influenza A PCR NOT DETECTED 11/23/22 16:40 Nasal Parainfluen 1 PCR NOT DETECTED 11/23/22 16:40 Nasal Parainfluen 2 PCR NOT DETECTED 11/23/22 16:40 Nasal Parainfluen 3 PCR NOT DETECTED 11/23/22 16:40 Nasal Parainfluen 4 PCR NOT DETECTED 11/23/22 16:40 Nasal RSV (PCR) NOT DETECTED 11/23/22 16:40 Nasal B.pertussis DNA PCR NOT DETECTED 11/23/22 16:40 Nasal C.pneumoniae (PCR) NOT DETECTED 11/23/22 16:40 Edy Human Metapneumo PCR NOT DETECTED 11/23/22 16:40 Nasal M.pneumoniae (PCR) NOT DETECTED 11/23/22 16:40 Nasal SARS-CoV-2 (PCR) DETECTED A 11/23/22 16:40 Sepsis Event Note (H) - Sepsis Criteria Sepsis Criteria: Recorded Heart Rate greater than 90 bpm, Respiratory: Increasing oxygen requirements, WBC count greater than 12,000 or less than 4000
[2022-11-24] MEDS: CHOLECALCIFEROL 25 MCG TABLET PO SCH (16:52)
[2022-11-24] MEDS: INSULIN LISPRO 300 UNIT/3 ML PEN SUBQ SCH ×2 (16:53→20:53)
[2022-11-24] MEDS: MONTELUKAST 10 MG TABLET PO SCH (20:53)
[2022-11-24] MEDS: SODIUM CHLORIDE 0.9% 1,000 ML IV SCH (20:53)
[2022-11-24] MEDS: INSULIN GLARGINE-YFGN 300 UNIT/3 ML PEN SUBQ SCH (20:53)
[2022-11-25] MEDS: SODIUM CHLORIDE FLUSH 0.9% 10 ML SYRINGE IVP SCH ×4 (01:30→22:19)
[2022-11-25 06:23] LABS: BASOPHILS % (AUTO) 0.3 %; HCT - HEMATOCRIT 39.3 % (42.0-52.0); HGB - HEMOGLOBIN 13.3 g/dL (14.0-18.0); LYMPHOCYTES % (AUTO) 6.3 %; MEAN CORPUSCULAR HEMOGLOBIN 31.1 pg (27.0-31.0); MEAN CORPUSCULAR HGB CONC 33.8 g/dL (32.0-36.0); MEAN PLATELET VOLUME 9.9 fL (7.4-11.4); MONOCYTES % (AUTO) 5.6 %; NEUTROPHILS % (AUTO) 85.5 %; PLT - PLATELET COUNT 254 10^3/uL (130-450); RED BLOOD COUNT 4.27 10^6/uL (4.70-6.10); RED CELL DISTRIBUTION WIDTH 12.1 % (12.0-15.0); WHITE BLOOD COUNT 27.5 x10^3/uL (4.8-10.8)
[2022-11-25 06:28] LABS: ABNORMAL LYMPHS % (MANUAL) 0 %; BAND NEUTROPHILS % (MANUAL) 0 %
[2022-11-25 06:38] LABS: CALCIUM 8.8 mg/dL (8.5-10.3); POTASSIUM 4.3 mmol/L (3.5-5.0)
[2022-11-25 06:39] LABS: LYMPHOCYTES # (MANUAL) 1.9 10^3/uL (1.5-3.5); LYMPHOCYTES % (MANUAL) 7 %; MONOCYTES # (MANUAL) 1.7 10^3/uL (0.0-1.0); MYELOCYTES % (MANUAL) 1 %; NEUTROPHILS # (MANUAL) 23.7 10^3/uL (1.5-6.6)
[2022-11-25 06:40] LABS: DIFFERENTIAL COMMENT MANUAL DIFFERENTIAL; PLATELET ESTIMATE, MANUAL NORMAL (130-450,000) (NORMAL); PLATELET MORPHOLOGY NORMAL APPEARANCE (NORMAL); RBC MORPHOLOGY (MULTIPLE) NORMAL APPEARANCE (NORMAL); WBC MORPHOLOGY (MULTIPLE) NORMAL APPEARANCE (NORMAL)
[2022-11-25] MEDS: ALBUTEROL 1 PUFF INH SCH ×4 (07:52→20:15)
[2022-11-25] MEDS: INSULIN LISPRO 300 UNIT/3 ML PEN SUBQ SCH ×5 (08:12→22:17)
[2022-11-25] MEDS: INSULIN GLARGINE-YFGN 300 UNIT/3 ML PEN SUBQ SCH (08:13)
[2022-11-25] MEDS: ENOXAPARIN 40 MG/0.4 ML SYRINGE SUBQ SCH (08:14)
[2022-11-25] MEDS: AZITHROMYCIN 250 MG TABLET PO SCH (08:16)
[2022-11-25] MEDS: CHOLECALCIFEROL 25 MCG TABLET PO SCH (08:16)
[2022-11-25] MEDS: DEXAMETHASONE 4 MG/ML VIAL IVP SCH (08:16)
[2022-11-25] MEDS: guaiFENesin 600 MG TABLET PO SCH ×2 (08:16→22:19)
[2022-11-25] MEDS: allopurinoL 100 MG TABLET PO SCH (08:16)
[2022-11-25] MEDS: LOSARTAN 50 MG TABLET PO SCH (08:17)
[2022-11-25] MEDS: SACCHAROMYCES BOULARDII 250 MG CAPSULE PO SCH ×2 (08:17→22:19)
[2022-11-25] MEDS: cefTRIAXone 1 GM in SODIUM CHLORIDE 0.9% MINIBAG 100 ML IV SCH (08:17)
[2022-11-25] MEDS: REMDESIVIR 100MG VIAL 100 MG in SODIUM CHLORIDE 0.9% 100ML 100 ML IV SCH (09:10)
--- NOTE | 2022-11-25 14:46 | PROVIDER PROGRESS NOTE ---
Subjective - Prog Note Date Prog Note Date: 11/25/22 Prog Note Time: 14:44 - Subjective Pt reports feeling: Improved Subjective: He said that it took a few days for him to get steadily sicker and sicker in spite of intervention from his primary care provider office. They initially treated him as a pneumonia with asthmatic exacerbation and put him on antibiotics. But he got worse and took a COVID test and it was positive. He stated home for a couple more days but he got to the point where he could not breathe anymore and that is when he called the ambulance. Shortness of breath was severe. Coughing was severe. Phlegmy cough. In comparison to that, he is 100% better. He is still having a phlegmy cough, but he is not short of breath. He can actually take deep breaths of air. Still wheezing and whistling but he does not feel like he is suffocating to . Current Medications - Current Medications Current Medications: Active Medications Acetaminophen (Acetaminophen 325 Mg Tablet) 650 mg PO Q4HR PRN PRN Reason: Pain 1 to 4, or Fever Albuterol (Albuterol 1 Puff) 2 puffs INH RTQID [facility] Last Admin: 11/25/22 11:27 Dose: 2 puffs Albuterol/Ipratropium (Ipratropium/Albuterol 3 Ml Neb) 3 ml INH Q4HR PRN PRN Reason: Wheezing Last Admin: 11/23/22 22:59 Dose: 3 ml Allopurinol (Allopurinol 100 Mg Tablet) 100 mg PO DAILY [facility] Last Admin: 11/25/22 08:16 Dose: 100 mg Azithromycin (Azithromycin 250 Mg Tablet) 500 mg PO DAILY [facility] Stop: 11/26/22 00:01 Last Admin: 11/25/22 08:16 Dose: 500 mg Cholecalciferol (Cholecalciferol 25 Mcg Tablet) 50 mcg PO DAILY [facility] Last Admin: 11/25/22 08:16 Dose: 50 mcg Dexamethasone (Dexamethasone 4 Mg/Ml Vial) 6 mg IVP DAILY [facility] Last Admin: 11/25/22 08:16 Dose: 6 mg Enoxaparin Sodium (Enoxaparin 40 Mg/0.4 Ml Syringe) 40 mg SUBQ DAILY [facility] Last Admin: 11/25/22 08:14 Dose: 40 mg Glipizide (Glipizide Er 2.5 Mg Tablet) 10 mg PO DAILY [facility] Last Admin: 11/25/22 08:17 Dose: 10 mg Guaifenesin (Guaifenesin 600 Mg Tablet) 600 mg PO BID [facility] Last Admin: 11/25/22 08:16 Dose: 600 mg Sodium Chloride (Normal Saline 0.9%) 1,000 mls @ 40 mls/hr IV .Q25H [facility] Last Infusion: 11/25/22 11:00 Dose: 0 mls/hr Ceftriaxone Sodium 1 gm/ (Sodium Chloride) 100 mls @ 200 mls/hr IV DAILY [facility] Last Infusion: 11/25/22 08:47 Dose: Infused Remdesivir 100 mg/ Sodium (Chloride) 100 mls @ 200 mls/hr IV DAILY [facility] Stop: 11/28/22 09:29 Last Infusion: 11/25/22 09:40 Dose: Infused Insulin Glargine-yfgn (Insulin Glargine-Yfgn 300 Unit/3 Ml Pen) 15 unit SUBQ QD BREAKFAST [facility] Insulin Glargine-yfgn (Insulin Glargine-Yfgn 300 Unit/3 Ml Pen) 10 unit SUBQ QPM [facility] Insulin Human Lispro (Insulin Lispro 300 Unit/3 Ml Pen) 3 - 11 unit SUBQ 0800,1200,1700,2100 [facility]; Protocol Last Admin: 11/25/22 12:19 Dose: 7 unit Losartan Potassium (Losartan 50 Mg Tablet) 50 mg PO DAILY [facility] Last Admin: 11/25/22 08:17 Dose: 50 mg Montelukast Sodium (Montelukast 10 Mg Tablet) 10 mg PO QPM [facility] Last Admin: 11/24/22 20:53 Dose: 10 mg Ondansetron HCl (Ondansetron 4 Mg/2 Ml Vial) 4 mg IVP Q6HR PRN PRN Reason: Nausea / Vomiting Saccharomyces Boulardii (Saccharomyces Boulardii 250 Mg Capsule) 250 mg PO BID [facility] Last Admin: 11/25/22 08:17 Dose: 250 mg Sodium Chloride (Sodium Chloride Flush 0.9% 10 Ml Syringe) 10 ml IVP PRN PRN PRN Reason: NEEDED PER PROVIDER ORDERS Sodium Chloride (Sodium Chloride Flush 0.9% 10 Ml Syringe) 10 ml IVP 0100,0900,1700 [facility] Last Admin: 11/25/22 08:17 Dose: Not Given Krill/[place]-3/Dha/Epa/Lipids [Krill Oil 350 mg Softgel] 1 cap PO DAILY 01/26/20 amLODIPine [Norvasc] 10 mg PO DAILY 01/26/20 Codeine Phosphate/Guaifenesin [Guaifen-Codeine 100-10 mg/5 ml] 10 ml PO Q6HR PRN 11/23/22 Dulaglutide [Trulicity] 1.5 mg SQ Q7D 11/23/22 Losartan [Cozaar] 50 mg PO DAILY 11/23/22 Montelukast [Singulair] 10 mg PO QPM 11/23/22 Colchicine 1 - 2 tab PO PRN PRN 11/24/22 Ipratropium/Albuterol [Duoneb] 3 ml INH Q4H PRN 11/24/22 allopurinoL [Allopurinol] 300 mg PO DAILY 11/24/22 glipiZIDE [Glipizide] 10 mg PO BID 11/24/22 hydroCHLOROthiazide [Hydrodiuril] 25 mg PO DAILY 11/24/22 Objective - Vital Signs/Intake & Output Reviewed Vital Signs: Yes Vital Signs: Vital Signs x48h Temp Pulse Pulse Resp BP Pulse Ox O2 Flow Rate 11/25/22 12:20 19 92 4 11/25/22 11:27 80 18 5 11/25/22 07:52 80 20 35 11/25/22 07:50 36.4 C L 81 20 150/77 H 94 35 Intake & Output: Intake & Output 11/22/22 11/23/22 11/24/22 11/25/22 23:59 23:59 23:59 23:59 Intake Total 920 3266.666 2224.667 Output Total 500 2700 1425 Balance 420 566.666 799.667 - Objective General Appearance: positive: Alert, Other (Tall, morbidly obese, bearded, pleasant white male who looks older than stated age with a nasal tone of voice, and an occasional phlegmy cough but able to have a normal conversation and laugh spontaneously without dyspnea) Eyes Bilateral: positive: PERRL, EOMI ENT: positive: No signs of dehydration Neck: positive: No JVD. negative: Stiff neck Respiratory: positive: No respiratory distress, Wheezes, Rhonchi Cardiovascular: positive: Regular rate & rhythm Abdomen: positive: Non-tender, Nml bowel sounds, No distention, Other (Large protuberant obese belly and difficult to assess for organomegaly) Skin: positive: Warm, Dry Extremities: positive: Full ROM, No pedal edema Neurologic/Psychiatric: positive: Oriented x3, CN's nml (2-12), Motor nml (Sitting up in a chair, able to bring himself up from a reclining to sitting position and stand without assist) - Lab Results Fish Bones: 11/25/22 05:36 11/25/22 05:36 Other Labs: Lab Results x24hrs 11/25/22 11/25/22 Range/Units 05:36 05:36 WBC 27.5 H (4.8-10.8) x10^3/uL RBC 4.27 L (4.70-6.10) 10^6/uL Hgb 13.3 L (14.0-18.0) g/dL Hct 39.3 L (42.0-52.0) % MCV 92.0 (80.0-94.0) fL MCH 31.1 H (27.0-31.0) pg MCHC 33.8 (32.0-36.0) g/dL RDW 12.1 (12.0-15.0) % Plt Count 254 (130-450) 10^3/uL MPV 9.9 (7.4-11.4) fL Neut # (Auto) Not Reportable Lymph # (Auto) Not Reportable [place] # (Auto) Not Reportable Eos # (Auto) Not Reportable Baso # (Auto) Not Reportable Absolute Nucleated RBC Not Reportable Total Counted 100 Band Neuts % (Manual) 0 (0 - 10) % Abnorm Lymph % (Manual) 0 % Myelocytes % 1 H ( - 0) % Nucleated RBC % Not Reportable Neutrophils # (Manual) 23.7 H (1.5-6.6) 10^3/uL Lymphocytes # (Manual) 1.9 (1.5-3.5) 10^3/uL Monocytes # (Manual) 1.7 H (0.0-1.0) 10^3/uL Eosinophils # (Manual) 0.0 (0-0.7) 10^3/uL Basophils # (Manual) 0.0 (0-0.1) 10^3/uL Differential Comment MANUAL DIFFERENTIAL WBC Morphology NORMAL APPEARANCE (NORMAL) Platelet Estimate NORMAL (130-450,000) (NORMAL) Platelet Morphology NORMAL APPEARANCE (NORMAL) RBC Morph Micro Appear NORMAL APPEARANCE (NORMAL) Sodium 135 (135-145) mmol/L Potassium 4.3 (3.5-5.0) mmol/L Chloride 96 L (101-111) mmol/L Carbon Dioxide 31 (21-32) mmol/L Anion Gap 8.0 (6-13) BUN 29 H (6-20) mg/dL Creatinine 1.0 (0.6-1.2) mg/dL Estimated GFR (MDRD) 75 L (>89) Glucose 296 H (70-100) mg/dL Calcium 8.8 (8.5-10.3) mg/dL ABX Reporting Has patient been on IV antibiotics over the past 48 hours?: Yes Sepsis Event Note (H) - Sepsis Criteria Sepsis Criteria: Recorded Heart Rate greater than 90 bpm, Respiratory: Increasing oxygen requirements, WBC count greater than 12,000 or less than 4000 Assessment/Plan - Problem List (1) Acute respiratory failure with hypoxia Impression: This is caused by his COPD exacerbation and pneumonia and Covid infection. We are giving him oxygen to maintain O2 sats between 89 to 92% and a COPD year. He was changed to heated high flow nasal cannula yesterday because of the cough. He says that has helped tolerate oxygen much better. He is doing his incentive spirometry. He does occasionally bring up clear to yellow phlegm. He is still wheezing but so much better than he was when he came into the hospital. He has nothing but praise about the great care at the nurses of given him. Plan: Supplemental oxygen to continue with target O2 saturations 90 to 93% in a COPDer Treat the underlying problems as below (2) Pneumonia due to COVID-19 virus Conclusion/Plan: He started to cough and feel SOB about a week ago, tested negative for COVID on 11/19/2022 and positive for COVID on 11/20/2022. He therefore qualified to start remdesivir since the big viral load that turned his test positive was just 4 before admission and sx started a week before admission. The ER triage wrote that his COVID test was positive 2 weeks ago, and that is incorrect. This was communicated to Pharmacy today. Remdesivir day #3/ Decadron day #12/05 Zithromax day #3 Ceftriaxone day #11/30 Plan: Respiratory isolation When his oxygen requirements are down to an acceptable level. I will be sending him home. I am hoping that he will go down to room air and 92% with exertion. But if need be, I would send him home on 1 to 2 L. (3) COPD exacerbation Conclusion/Plan: He has many yr Hx of Asthma/COPD and has a home Nebulizer machine, but has never needed home oxygen. Plan: Continue with MDI bronchodilators, 4 times daily scheduled and every 4 hours as needed Continue with IV steroids Continue with his montelukast Continue Mucinex for pulmonary toilet (4) DM type 2 (diabetes mellitus, type 2) Conclusion/Plan: A1c was 8.1% with estimated average glucose 186. He takes glipizide 10 mg p.o. twice daily plus Trulicity 1.5 mg subcu every 7 days.We have him on insulin 8 units long-acting twice a day plus sliding scale with meals. He is also on glipizide 10 mg extended release daily here. Because of his steroids his glucose is uncontrolled. Yesterday before lunch she was 320. Before dinner 347. At bedtime 392. This morning he was 282 before breakfast, and 259 before lunch. As such, a goal of a glucose below 160 before meals has not been achieved. I also like to see his fasting below 125 Plan: Continue Diabetic diet Continue Hypoglycemia protocol, fingerstick checks, SS insulin coverage Continue his glipizide 10 mg extended release daily Increase his long-acting insulin to 15 units in the morning and 10 units at night. Add 5 units of short acting nutritional coverage before each meal in addition to his sliding scale
[2022-11-25] MEDS ORDERED: INSULIN GLARGINE-YFGN 300 UNIT/3 ML PEN SUBQ SCH (21:00)
[2022-11-25] MEDS: MONTELUKAST 10 MG TABLET PO SCH (22:19)
[2022-11-26] MEDS: SODIUM CHLORIDE 0.9% 1,000 ML IV SCH (01:57)
[2022-11-26] MEDS: IPRATROPIUM/ALBUTEROL 3 ML NEB INH PRN ×2 (03:25→14:45)
[2022-11-26 05:42] LABS: BASOPHILS % (AUTO) 0.3 %; HCT - HEMATOCRIT 42.4 % (42.0-52.0); MEAN CORPUSCULAR HEMOGLOBIN 30.8 pg (27.0-31.0); MEAN CORPUSCULAR VOLUME 93.2 fL (80.0-94.0); MEAN PLATELET VOLUME 9.4 fL (7.4-11.4); NEUTROPHILS % (AUTO) 75.7 %; PLT - PLATELET COUNT 248 10^3/uL (130-450); RED BLOOD COUNT 4.55 10^6/uL (4.70-6.10); RED CELL DISTRIBUTION WIDTH 12.1 % (12.0-15.0)
[2022-11-26 05:44] LABS: ABNORMAL LYMPHS % (MANUAL) 0 %; BAND NEUTROPHILS % (MANUAL) 0 %
[2022-11-26 05:53] LABS: CALCIUM 8.8 mg/dL (8.5-10.3); CREATININE 0.9 mg/dL (0.6-1.2); POTASSIUM 3.8 mmol/L (3.5-5.0)
[2022-11-26 06:06] LABS: DIFFERENTIAL COMMENT MANUAL DIFFERENTIAL; LYMPHOCYTES # (MANUAL) 3.5 10^3/uL (1.5-3.5); LYMPHOCYTES % (MANUAL) 16 %; MONOCYTES # (MANUAL) 1.3 10^3/uL (0.0-1.0); MYELOCYTES % (MANUAL) 1 %; NEUTROPHILS # (MANUAL) 16.9 10^3/uL (1.5-6.6); PLATELET ESTIMATE, MANUAL NORMAL (130-450,000) (NORMAL); PLATELET MORPHOLOGY NORMAL APPEARANCE (NORMAL); RBC MORPHOLOGY (MULTIPLE) NORMAL APPEARANCE (NORMAL); WBC MORPHOLOGY (MULTIPLE) NORMAL APPEARANCE (NORMAL)
[2022-11-26] MEDS: ALBUTEROL 1 PUFF INH SCH ×3 (07:25→14:45)
[2022-11-26] MEDS: INSULIN LISPRO 300 UNIT/3 ML PEN SUBQ SCH ×4 (07:54→12:38)
[2022-11-26] MEDS: SODIUM CHLORIDE FLUSH 0.9% 10 ML SYRINGE IVP SCH (07:55)
[2022-11-26] MEDS ORDERED: INSULIN GLARGINE-YFGN 300 UNIT/3 ML PEN SUBQ SCH (08:00)
[2022-11-26] MEDS: ENOXAPARIN 40 MG/0.4 ML SYRINGE SUBQ SCH (08:21)
[2022-11-26] MEDS: allopurinoL 100 MG TABLET PO SCH (08:21)
[2022-11-26] MEDS: CHOLECALCIFEROL 25 MCG TABLET PO SCH (08:21)
[2022-11-26] MEDS: DEXAMETHASONE 4 MG/ML VIAL IVP SCH (08:21)
[2022-11-26] MEDS: LOSARTAN 50 MG TABLET PO SCH (08:21)
[2022-11-26] MEDS: guaiFENesin 600 MG TABLET PO SCH (08:21)
[2022-11-26] MEDS: SACCHAROMYCES BOULARDII 250 MG CAPSULE PO SCH (08:21)
[2022-11-26] MEDS: REMDESIVIR 100MG VIAL 100 MG in SODIUM CHLORIDE 0.9% 100ML 100 ML IV SCH (08:22)
[2022-11-26] MEDS: cefTRIAXone 1 GM in SODIUM CHLORIDE 0.9% MINIBAG 100 ML IV SCH (09:11)
--- NOTE | 2022-11-26 11:46 | Discharge Plan ---
Discharge Plan Problem Reviewed?: Yes Disposition: Home, Self Care Condition: Stable Diet: Diabetic Activity Restrictions: Activity as Tolerated Shower Restrictions: No Driving Restrictions: No Health Concerns: You have problems with your lungs in the form of asthma with COPD. You also have obstructive sleep apnea requiring a CPAP. Your past medical history has co morbidities of diabetes, hypertension, and obesity. You have been sick for 2 weeks and had increasing shortness of breath and cough. You are on 5 days of steroids and you were not any better. You were seen by your doctor and given some treatment but you continue to deteriorate and he finally came to the emergency room because you just could not breathe. We diagnosed you as having RSV infection and COVID infection. These are both severe viral infections and antibiotics really does not help very much. With steroids, nebulizers, and IV fluids you gradually had improved oxygenation. You are not coughing nearly as much. However, as good as you feel, you still need at least 4 L/min of nasal cannula oxygen to maintain your oxygen saturations in your blood. Plan of Treatment: We did start you on therapy for COVID with remdesivir but in retrospect this may not have helped very much because you are days, days beyond when you first became ill. As such we will not be completing therapy with remdesivir. We are asking you to taper your steroids with a prednisone Dosepak. Just follow the pill pack directions on how many to take each day. Each day you will take less and less. Take guaifenesin extended release twice a day to help loosen up your secretions. Make sure you take your asthma inhaler 3 times a day. In the morning, middle of the day, and then at night before you go to bed. As time goes on you will need less and less oxygen. Please follow-up with your primary care provider, Cedric Bennett, and have your oxygen checked in the office in a couple of weeks. He should be able to guide you as to when to come off the oxygen. Care Goals: To return to baseline status with regards to not needing oxygen. We could also recommend regular exercise program with weight loss. Assessment: Patient is alert, oriented, making his own decisions. Promises to follow through. No Smoking: If you smoke, Please STOP! Call for help. Follow-up with: Cedric Bennett MD [Provider Admit Priv/Credential] -
--- NOTE | 2022-11-26 11:55 | DISCHARGE SUMMARY ---
Discharge Summary Admit Date: 11/23/22 Discharge Date: 11/26/22 Discharging Provider: Aracelis Cortez MD Primary Care Provider: Cedric Bennett MD Code Status: Attempt Resuscitation Condition at Discharge: Stable Discharge Disposition: 01 Home, Self Care - DIAGNOSES Discharge Diagnoses with Status of Each Condition: 1. Acute respiratory failure with hypoxia 2. Pneumonia due to COVID-19 virus 3. COPD with exacerbation 4. Type 2 diabetes mellitus, uncontrolled with hyperglycemia, with complications of neuropathy, on long-term insulin 5. Morbid obesity - HPI History of Present Illness: This is a 67-year-old male with a history of obesity, diabetes on oral agents Trulicity and glipizide, history of hypertension, DIANE not using his home CPAP, and asthma/COPD not on home oxygen but has a home nebulizer machine. He developed a cough for the past 1-2 weeks. He increased his nebulizer use from daily to 4 times a day. He did a home COVID test and tested negative. He went to see his provider and was was prescribed antibiotics and oral steroids. He repeated his home COVID test that day and tested positive. He called his doctor to ask if he should take the antibiotics and was told to just take the steroids which he took for 5 days and there was no improvement. He has had worsening shortness of breath, with orthopnea and was even "using his mother's home oxygen". Today he called EMS, and with EMS at the scene his O2 sat was initially 70%. In the ER, an oxygen saturation on room air was 86%. Patient has a temperature of 38.2 C in ER. He was wheezing in the ED and received 1 nebulizer DuoNeb treatment. He was also given Solu-Medrol IV 125 mg x1, Rocephin and Zithromax. Labs show that he has an elevated white blood count of 24 (but has had 5 days of steroids recently), mild hyponatremia with sodium 129, glucose 200, he is COVID-positive and rhinovirus positive. Chest x-ray was read as having diffuse interstitial changes and bilateral atelectasis versus infiltrates as well. The patient was discussed by the ED provider talking to me on the Hospitalist Team. The patient will be admitted for treating COVID-pneumonia, COPD with exacerbation, acute hypoxia, and managing his underlying diabetes mellitus (which is expected to have high glu on steroids). I discussed his CODE BLUE wishes and he wants to be a Full Code, including intubation. - Past Medical History Cardiovascular: reports: Hypertension Respiratory: reports: Asthma, COPD, Pneumonia, Shortness of breath, Sleep apnea Neuro: reports: None Endocrine/Autoimmune: reports: Type 2 diabetes GI: reports: None : reports: Frequency HEENT: reports: None Psych: reports: None Musculoskeletal: reports: Gout Derm: reports: None MRSA Hx?: No - Past Surgical History Ortho: reports: Other Derm: reports: Skin grafts - CONSULTS | PROCEDURES Procedures: Chest x-ray with moderate vascular congestion without cardiomegaly. Bibasilar a telectasis and/or infiltrate is noted. Blood cultures without growth after 2 days - HOSPITAL COURSE Hospital Course: The patient was placed on empiric antibiotic therapy for possible secondary pneumonia related to COVID. He had severe wheezing, rhonchi, and very tight lung sounds with severe hypoxia. He gradually responded and that wheezing became less and less, and his lung sounds were more musical with rhonchi. He said that he felt less chest tightness and she felt almost normal. He said he was 100% better than when he came in. We did start him on remdesivir but in retrospect it probably was not indicated. He was ill for a good 2 weeks before he came in. As such we did not feel the need to complete 5 days of remdesivir therapy. By the time of discharge, he is ambulating in the room, eating, and no longer severely tachypneic. However he still requires 4 L nasal cannula to maintain O2 sats. On room air at rest the patient was hypoxic with room air O2 sats of 86%. At rest, with 2 L nasal cannula, he was 87%. On 3 L/min nasal cannula he was 88%. And finally on 4 L/min nasal cannula he was 93%. With exertion on 4 L he was 92%. As such I am ordering oxygen, 4 L/min at rest and exertion to treat his COVID and his COPD with asthma. Diabetes was uncontrolled before admission. A1c is 8.1% and he uses a sulfonylurea and Trulicity. We did not use those medications during his stay and treated him with long-acting insulin, nutritional short acting insulin with each meal, and sliding scale insulin. On the day of discharge fasting glucose was 107. Steroids during his stay did result in elevation of his glucose. We would recommend that he be seen by his primary care provider in the next 1 week to 2 weeks to make sure his diabetes stays under control with a tapering steroid medication. To examine his lungs and make sure that wheezing is not worsening. At discharge he has musical rhonchi with inhalation. Blood pressure stayed stable during his stay. He was only on discharge that his systolic was 151 and 164. Discharge exam had a temperature of 36.4. Heart rate 94. Blood pressure 151/75. Respirations 20. He is on 4 L nasal cannula with a saturation of 93%. He is a 6 foot tall morbidly obese man at 130.5 kg. Pleasant, cooperative, alert, oriented, lucid speech patterns. Neck has shotty adenopathy. He has a barrel chest with prolonged and exhalation but no wheezing. He does have inspiratory musical lung sounds that are diffuse, but no respiratory distress. He is able to speak in full sentences without increased respiratory effort. PMI is normally placed. Regular rate and rhythm. Abdomen is obese, soft, nontender. Normal bowel sounds. Extremities have trace edema. Greater than 30 minutes was spent correlating discharge. This document was made in part using voice recognition software. While efforts are made to proofread this document, sound alike and grammatical errors may occur. - ALLERGIES Allergies/Adverse Reactions: Allergies Allergy/AdvReac Type Severity Reaction Status Date / Time diclofenac AdvReac Anaphylaxis Verified 11/23/22 16:15 NSAIDS (Non-Steroidal AdvReac Itching Verified 11/23/22 16:15 Anti-Inflamma - MEDICATIONS Home Medications: Ambulatory Orders Medication Instructions Recorded Confirmed Krill/[place]-3/Dha/Epa/Lipids 1 cap PO DAILY 01/26/20 11/24/22 [Krill Oil 350 mg Softgel] amLODIPine [Norvasc] 10 mg PO DAILY 01/26/20 11/24/22 Codeine Phosphate/Guaifenesin 10 ml PO Q6HR PRN 11/23/22 11/23/22 [Guaifen-Codeine 100-10 mg/5 ml] Dulaglutide [Trulicity] 1.5 mg SQ Q7D 11/23/22 11/23/22 Losartan [Cozaar] 50 mg PO DAILY 11/23/22 11/23/22 Montelukast [Singulair] 10 mg PO QPM 11/23/22 11/23/22 Colchicine 1 - 2 tab PO PRN PRN 11/24/22 11/24/22 Ipratropium/Albuterol [Duoneb] 3 ml INH Q4H PRN 11/24/22 11/24/22 allopurinoL [Allopurinol] 300 mg PO DAILY 11/24/22 11/24/22 glipiZIDE [Glipizide] 10 mg PO BID 11/24/22 11/24/22 hydroCHLOROthiazide [Hydrodiuril] 25 mg PO DAILY 11/24/22 11/24/22 Acetaminophen [Tylenol] 650 mg PO Q4HR PRN tab 11/26/22 Cholecalciferol [Vitamin D3] 50 mcg PO DAILY tab 11/26/22 guaiFENesin [Guaifenesin ER] 600 mg PO BID #30 ea 11/26/22 predniSONE [Prednisone 21-TAB dose 10 mg PO UD #1 each 11/26/22 pack] - LABS Result Diagrams: 11/26/22 05:30 11/26/22 05:30 - SEPSIS Sepsis Criteria: Recorded Heart Rate greater than 90 bpm, Respiratory: Increasing oxygen requirements, WBC count greater than 12,000 or less than 4000
[2022-11-26 13:32] VITALS: BP 147/85
== END 2022-11-26 15:45 | disposition home or self-care (01) | DRG 177 ==
LOC: EDUNIT# → ED 15:58 → MS2 18:49
PROVIDERS: ADMIT Internal Medicine; ATTEND Specialist
PROC: XW033E5 Introduction of Remdesivir Anti-infective into Peripheral Vein, Percutaneous Approach, New Technology Group 5 (ICD-10-PCS; principal; 2022-11-24)
PROC: 3E0333Z Introduction of Anti-inflammatory into Peripheral Vein, Percutaneous Approach (ICD-10-PCS; 2022-11-24)
DX: U07.1 COVID-19 (principal); J12.82 Pneumonia due to coronavirus disease 2019; R09.02 Hypoxemia; J96.01 Acute respiratory failure with hypoxia; E87.8 Other disorders of electrolyte and fluid balance, not elsewhere classified; J44.0 Chronic obstructive pulmonary disease with (acute) lower respiratory infection; J44.1 Chronic obstructive pulmonary disease with (acute) exacerbation; G47.30 Sleep apnea, unspecified; E87.1 Hypo-osmolality and hyponatremia; E11.65 Type 2 diabetes mellitus with hyperglycemia; E11.40 Type 2 diabetes mellitus with diabetic neuropathy, unspecified; Z79.85 Long-term (current) use of injectable non-insulin antidiabetic drugs; Z79.84 Long term (current) use of oral hypoglycemic drugs; E66.01 Morbid (severe) obesity due to excess calories; Z68.35 Body mass index [BMI] 35.0-35.9, adult; B34.8 Other viral infections of unspecified site; I10 Essential (primary) hypertension; G47.33 Obstructive sleep apnea (adult) (pediatric); R35.0 Frequency of micturition; T38.0X5A Adverse effect of glucocorticoids and synthetic analogues, initial encounter
CPT/HCPCS: 36415; 71045; 80048; 80053; 81003; 83036; 83605; 83690; 85025; 85610; 85730; 87040; 87633; 94640; 94664; 94761; 96365; 96375; 99285; A9270; J1650; J1815; 81001; 87086

== ENCOUNTER 2023-09-15 15:49 | Outpatient (CLI) | payer MEDICARE, BC ==
--- NOTE | 2023-09-15 19:30 | XRAY Report ---
PROCEDURE: Chest 2 View X-Ray INDICATIONS: COUGH TECHNIQUE: 2 views of the chest were acquired. COMPARISON: Chest x-ray, 11/23/2022. FINDINGS: Surgical changes and devices: None. Lungs and pleura: Question a cavitary nodule in the left midlung zone. Left lower lobe infiltrate. B ilateral interstitial prominence. No pleural effusions or pneumothorax. Mediastinum: Mediastinal contours appear normal. Heart size is normal. Bones and chest wall: There are multiple old right rib fractures. Overlying soft tissues appear unr emarkable. IMPRESSION: 1. Left lower lobe infiltrate suspicious for pneumonia. 2. Question a cavitary nodule in the left midlung zone. Recommend chest CT for further evaluation. Reviewed by: Maria Guadalupe Diez MD on 09/15/2023 7:28 PM PST Approved by: Maria Guadalupe Diez MD on 09/15/2023 7:28 PM PST Station ID: [id number]
== END 2023-09-15 15:50 | disposition home or self-care (01) ==
LOC: DI 15:49
PROVIDERS: ATTEND Nurse Practitioner Family
DX: R91.8 Other nonspecific abnormal finding of lung field (principal)

== ENCOUNTER 2023-09-25 12:54 | Outpatient (CLI) | payer BC ==
--- NOTE | 2023-09-25 16:04 | CT Report ---
P PROCEDURE: CHEST WO INDICATIONS: SOLITARY PULMONARY NODULE TECHNIQUE: Noncontrast 1mm axial images were acquired from the pulmonary apices to the posterior costophrenic an gles. Axial 5 mm soft tissue kernel reconstructions were performed as well as 8 mm axial MIP and cor onal and sagittal 5 mm reformations. For radiation dose reduction, the following was used: automate d exposure control, adjustment of mA and/or kV according to patient size. COMPARISON: Chest films dated FINDINGS: Image quality: Excellent. Lungs and pleura: There is either a mass or masslike consolidation extending to the pleura in the lef t upper lobe. Findings include a well-defined nodular component measuring 2.2 cm. There is vague more pheral density with somewhat spiculated margins and an infiltrative appearance inferior to the heart that is a well-defined nodule. There is patchy airspace pneumonia in the left lower lobe. There is mi nimal patchy atelectasis versus pneumonia in the extreme right lung base. No pleural effusions. No p neumothorax. No suspicious pulmonary nodules which require follow up. Mediastinum: Heart size is normal. No pericardial effusion. Moderate coronary artery calcifications. No large vessel abnormality. No mediastinal adenopathy by size criteria. Chest wall and lower neck: Thyroid is unremarkable. No axillary or supraclavicular adenopathy by size . Bones: No aggressive osseous abnormality. Upper Abdomen: Diffuse hepatic steatosis. IMPRESSION: 1. Possible nodular appearing focal left upper lobe pneumonia versus malignancy. The nodular componen t measures approximately 2.2 cm. There is an ill defined infiltrative pattern inferior to the nodular density. 2. Patchy left basilar pneumonia, minimal right basilar atelectasis. 3. Diffuse hepatic steatosis. 4. Coronary artery disease. Recommend treatment followed by 2 month follow-up CT to exclude the presence of malignancy. Reviewed by: Masood Ortiz MD on 09/25/2023 4:03 PM PST Approved by: Masood Ortiz MD on 09/25/2023 4:03 PM PST Station ID: [id number]
== END 2023-09-25 12:55 | disposition home or self-care (01) ==
LOC: DI 12:54
PROVIDERS: ATTEND Internal Medicine
DX: J18.9 Pneumonia, unspecified organism (principal); R91.1 Solitary pulmonary nodule; J98.11 Atelectasis; K76.0 Fatty (change of) liver, not elsewhere classified; I25.10 Atherosclerotic heart disease of native coronary artery without angina pectoris

== ENCOUNTER 2024-03-10 13:11 | Outpatient (CLI) | payer BC, MEDICARE ==
--- NOTE | 2024-03-10 15:59 | XRAY Report ---
PROCEDURE: Chest 2V INDICATIONS: ASTHMA EXACERBATION TECHNIQUE: 2 views of the chest were acquired. COMPARISON: Chest CT, 09/25/2023. Chest x-ray, 09/15/2023. FINDINGS: Surgical changes and devices: None. Lungs and pleura: Bilateral interstitial prominence. Mild airspace opacity in the left lower lobe. No pleural effusions or pneumothorax. Lungs are clear. Mediastinum: Mediastinal contours appear normal. Heart size is normal. Bones and chest wall: Old right seventh, eighth and ninth rib fractures are noted. No suspicious bon y lesions. Overlying soft tissues appear unremarkable. IMPRESSION: 1. Mild airspace opacity in the left lower lobe suspicious for pneumonia. 2. Bilateral interstitial prominence. Reviewed by: Maria Guadalupe Diez MD on 03/10/2024 2:58 PM AKDT Approved by: Maria Guadalupe Diez MD on 03/10/2024 2:58 PM AKDT Station ID: [id number]
== END 2024-03-10 13:12 | disposition home or self-care (01) ==
LOC: DI 13:11
PROVIDERS: ATTEND Physician Assistant
DX: J45.901 Unspecified asthma with (acute) exacerbation (principal)

== ENCOUNTER 2024-04-13 12:50 | Outpatient (CLI) | payer BC, MEDICARE ==
--- NOTE | 2024-04-13 19:29 | MRI Report ---
PROCEDURE: Cervical Spine WO INDICATIONS: CERVICAL RADICULOPATHY TECHNIQUE: Noncontrast sagittal T1 spin echo and T2 fast spin echo, sagittal STIR, foraminal oblique sagittal T2 fast spin echo, and axial gradient echo or T2 fast spin echo through the cervical spine. COMPARISON: None. FINDINGS: Image quality: Motion artifact is noted. Alignment and Curvature: There is reversal of the normal cervical lordosis, with the apex at the C4- C5 level. No significant AP alignment abnormality can be seen. Bone Marrow: Marrow demonstrates normal overall signal. Spinal Cord: Visualized spinal cord has normal size and signal. No cerebellar tonsillar herniation. Paraspinous Soft Tissues: No paravertebral masses. Prevertebral soft tissues are normal in thicknes s. C2-C3: No significant abnormality is seen. C3-C4: The disc height is relatively well preserved. Mild to moderate disc osteophyte complex is seen, which is eccentric to the right. Mild to moderate facet hypertrophy is seen. There is at least moderate bilateral neuroforaminal narrowing seen. Mild to moderate central canal narrowing is seen, with minimal mass effect upon the ventral spinal cord. C4-C5: Mild to moderate loss of disc height and disc signal can be seen. Moderate disc osteophyte co mplex is seen, with a central/left disc osteophyte protrusion. Moderate facet hypertrophy is seen. T here is at least moderate bilateral neuroforaminal narrowing seen, right worse than left. At least mo derate central canal narrowing is seen. Associated mass effect is seen upon the ventral spinal cord. C5-C6: Moderate loss of disc height and signal are seen. Moderate disc osteophyte complex is seen . There is a central/right disc osteophyte protrusion seen. Moderate facet hypertrophy is seen. Ther e is at least moderate right-sided and mild to moderate left-sided neuroforaminal narrowing. Moderat e central canal narrowing is seen. Minimal mass effect can be seen upon the ventral spinal cord. Mod erate loss of disc height and signal are seen. C6-C7: Mild to moderate disc osteophyte complex is seen, with a mild central disc osteophyte protrusi on. Mild facet hypertrophy is seen. There is mild left-sided and no right-sided neuroforaminal narro wing. Minimal to mild central canal narrowing is seen. C7-T1: No significant abnormality is seen. IMPRESSION: Multiple levels of cervical spine degenerative change can be seen, which are overall worst at C4-C5 a nd at C5-C6. Reviewed by: Nadir Reynolds MD on 04/13/2024 6:28 PM SULEMA Approved by: Nadir Reynolds MD on 04/13/2024 6:28 PM SULEMA Station ID: [id number]
== END 2024-04-13 12:51 | disposition home or self-care (01) ==
LOC: DI 12:50
PROVIDERS: ATTEND Physical Medicine & Rehabilitation
DX: M47.22 Other spondylosis with radiculopathy, cervical region (principal)

== ENCOUNTER 2024-04-30 15:19 | Emergency (ER) | payer MEDICARE, BC ==
--- NOTE | 2024-04-30 16:10 | ED Physician Documentation ---
History of Present Illness - Stated complaint Stated Complaint: HIGH BLOOD SUGAR - Chief complaint Chief Complaint: General - History obtained from History obtained from: Patient, Family - History of Present Illness Timing: Today - Additonal information Additional information: Davion miller is a 69-year-old male with type 2 diabetes who has been on Trulicity and and glyburide and he has stopped taking his Trulicity 1 week ago. He indicates that he had is a constant feeling of fullness and he has not lost weight in 1 year. He has now developed acute dizziness and lightheadedness today. He presents to the emergency department after finding a blood sugar of 471 after eating and having ketones.~ Review of Systems Constitutional: denies: Fever Eyes: denies: Decreased vision Ears: denies: Ear pain Nose: denies: Congestion Throat: denies: Sore throat Cardiac: denies: Chest pain / pressure, Palpitations Respiratory: reports: Wheezing (simialr to always). denies: Dyspnea, Cough GI: denies: Abdominal Pain, Nausea, Vomiting, Constipation, Diarrhea : reports: Frequency, Other (For the past several nights the patient has been up to go to the bathroom more than 3 times per night is usually is 1-2.). denies: Dysuria Skin: denies: Rash Musculoskeletal: denies: Neck pain, Back pain, Extremity pain Neurologic: denies: Generalized weakness, Focal weakness, Numbness PD PAST MEDICAL HISTORY - Past Medical History Cardiovascular: Hypertension Respiratory: Asthma, COPD, Pneumonia, Shortness of breath, Sleep apnea Neuro: None Endocrine/Autoimmune: Type 2 diabetes GI: None : Frequency HEENT: None Psych: None Musculoskeletal: Gout Derm: None - Past Surgical History Past Surgical History: Yes Ortho: Other Derm: Skin grafts - Present Medications Home Medications: Ambulatory Orders Medication Instructions Recorded Confirmed Krill/[place]-3/Dha/Epa/Lipids 1 cap PO DAILY 01/26/20 11/24/22 [Krill Oil 350 mg Softgel] amLODIPine [Norvasc] 10 mg PO DAILY 01/26/20 11/24/22 Codeine Phosphate/Guaifenesin 10 ml PO Q6HR PRN 11/23/22 11/23/22 [Guaifen-Codeine 100-10 mg/5 ml] Dulaglutide [Trulicity] 1.5 mg SQ Q7D 11/23/22 11/23/22 Losartan [Cozaar] 50 mg PO DAILY 11/23/22 11/23/22 Montelukast [Singulair] 10 mg PO QPM 11/23/22 11/23/22 Colchicine 1 - 2 tab PO PRN PRN 11/24/22 11/24/22 Ipratropium/Albuterol [Duoneb] 3 ml INH Q4H PRN 11/24/22 11/24/22 allopurinoL [Allopurinol] 300 mg PO DAILY 11/24/22 11/24/22 glipiZIDE [Glipizide] 10 mg PO BID 11/24/22 11/24/22 hydroCHLOROthiazide [Hydrodiuril] 25 mg PO DAILY 11/24/22 11/24/22 Acetaminophen [Tylenol] 650 mg PO Q4HR PRN tab 11/26/22 Cholecalciferol [Vitamin D3] 50 mcg PO DAILY tab 11/26/22 guaiFENesin [Guaifenesin ER] 600 mg PO BID #30 ea 11/26/22 predniSONE [Prednisone 21-TAB dose 10 mg PO UD #1 each 11/26/22 pack] - Allergies Allergies/Adverse Reactions: Allergies Allergy/AdvReac Type Severity Reaction Status Date / Time diclofenac AdvReac Anaphylaxis Verified 04/30/24 15:44 NSAIDS (Non-Steroidal AdvReac Itching Verified 04/30/24 15:44 Anti-Inflamma - Social History Does the pt smoke?: No Smoking Status: Never smoker Does the pt drink ETOH?: Yes Does the pt have substance abuse?: No PD ED PE NORMAL - Vitals Vital signs reviewed: Yes (tachy to 103 ypertensive ) - General General: Alert and oriented X 3, No acute distress, Well developed/nourished - HEENT HEENT: Atraumatic, PERRL, EOMI, Other (dry mucous membranes) - Neck Neck: Supple, no meningeal sign, No bony TTP - Cardiac Cardiac: No murmur, Other (tachy to 105 sitting up) - Respiratory Respiratory: No respiratory distress, Clear bilaterally - Abdomen Abdomen: Soft, Non tender - Back Back: No CVA TTP, No spinal TTP - Derm Derm: Normal color, Warm and dry, No rash - Extremities Extremities: No deformity, No edema - Neuro Neuro: Alert and oriented X 3, vp [employer] 2-12 intact, No motor deficit, No sensory deficit, Normal speech Eye Opening: Spontaneous Motor: Obeys Commands Verbal: Oriented GCS Score: 15 - Psych Psych: Normal mood, Normal affect Results - Vitals Vitals: Vital Signs - 24 hr 04/30/24 04/30/24 04/30/24 15:23 16:03 18:00 Temperature 36.8 C Heart Rate 103 H 106 H 91 Respiratory 18 22 24 Rate Blood Pressure 195/94 H 168/82 H O2 Saturation 95 97 94 Oxygen O2 Source Room air - Labs Labs: Laboratory Tests 04/30/24 04/30/24 04/30/24 16:15 16:15 16:30 WBC 10.5 RBC 4.86 Hgb 15.1 Hct 43.0 MCV 88.5 MCH 31.1 H MCHC 35.1 RDW 12.2 Plt Count 191 MPV 9.9 Neut # (Auto) 7.5 H Lymph # (Auto) 1.9 Stearns # (Auto) 0.8 Eos # (Auto) 0.2 Baso # (Auto) 0.1 Absolute Nucleated RBC 0.00 Nucleated RBC % 0.0 VBG pH 7.381 VBG pCO2 43.1 VBG pO2 56.8 H VBG HCO3 25.0 VBG Total CO2 26.3 VBG O2 Saturation 89.7 H VBG Base Excess -0.3 Sodium 128 L Potassium 3.6 Chloride 92 L Carbon Dioxide 27 Anion Gap 9.0 BUN 18 Creatinine 1.0 Estimated GFR (MDRD) 75 L Glucose 529 H* Calcium 9.7 Total Bilirubin 0.8 AST 27 ALT 51 Alkaline Phosphatase 83 Total Protein 6.7 Albumin 4.4 Globulin 2.3 Albumin/Globulin Ratio 1.9 Lipase 43 Urine Color Urine Clarity Urine pH Ur Specific [place] Urine Protein Urine Glucose (UA) Urine Ketones Urine Occult Blood Urine Nitrite Urine Bilirubin Urine Urobilinogen Ur Leukocyte Esterase Ur Microscopic Review Urine Culture Comments Serum Ketones 04/30/24 04/30/24 16:30 17:06 WBC RBC Hgb Hct MCV MCH MCHC RDW Plt Count MPV Neut # (Auto) Lymph # (Auto) Stearns # (Auto) Eos # (Auto) Baso # (Auto) Absolute Nucleated RBC Nucleated RBC % VBG pH VBG pCO2 VBG pO2 VBG HCO3 VBG Total CO2 VBG O2 Saturation VBG Base Excess Sodium Potassium Chloride Carbon Dioxide Anion Gap BUN Creatinine Estimated GFR (MDRD) Glucose Calcium Total Bilirubin AST ALT Alkaline Phosphatase Total Protein Albumin Globulin Albumin/Globulin Ratio Lipase Urine Color YELLOW Urine Clarity CLEAR Urine pH 6.5 Ur Specific [place] 1.010 Urine Protein NEGATIVE Urine Glucose (UA) >=1000 H Urine Ketones NEGATIVE Urine Occult Blood NEGATIVE Urine Nitrite NEGATIVE Urine Bilirubin NEGATIVE Urine Urobilinogen 0.2 (NORMAL) Ur Leukocyte Esterase NEGATIVE Ur Microscopic Review NOT INDICATED Urine Culture Comments NOT INDICATED Serum Ketones NEGATIVE Procedures - IVC sono (time) 1602 Bedside IVC sono: IVC measures (cm) (0.82), Dehydration (est 2 liter deficit) PD Medical Decision Making - ED course Complexity details: reviewed old records, reviewed results, re-evaluated patient, considered differential, d/w patient, d/w family Reviewed Lab Results: We reviewed a complete blood count showing a normal white blood cell count normal hemoglobin hematocrit and platelets chemistries showed a serum sodium low at 128 remainder of electrolytes are normal kidney function normal liver function normal glucose markedly elevated at 529 toxicology shows negative serum ketones blood gas shows a pH of 7.381 is a venous blood gas. Urinalysis is remarkable for a specific gravity 1.010 with greater than 1000 glucose present. I interpreted these labs to indicate the patient has hyperglycemia and is not ketotic. ED course: Davion miller is a 69-year-old diabetic male who has recently stopped his Trulicity. He has become dehydrated from his diabetes and has a glucose over 500 but without acidosis or ketones. He is treated in the ED with IV saline and regular insulin IV. At shift change his care is turned over to Dr. Horta with anticipation of improvement in glucose and potentially further treatment. Departure - Departure Clinical Impression: Dehydration, Hyperglycemia DM type 2 (diabetes mellitus, type 2) Qualifiers: Diabetes mellitus care home insulin use: without technician terminal and repeater use Diabetes mellitus complication status: with other specified complication Qualified Code(s): E11.69 - Type 2 diabetes mellitus with other specified complication Condition: Stable Instructions: ED Hyperglycemia Diabetic, ED Dehydration Follow-Up: Alejandro Ferrera MD [Primary Care Provider] - Comments: Davion, today it looks like your blood sugar is markedly elevated and you have become a bit dehydrated. We have provided you with some IV hydration and a little bit of insulin. You may require more treatment and a follow-up with your primary care doctor is indicated. Forms: PCP List
[2024-04-30] MEDS: SODIUM CHLORIDE 0.9% 1,000 ML IV STA (16:26)
[2024-04-30 16:27] LABS: BASOPHILS # (AUTO) 0.1 10^3/uL (0.0-0.1); BASOPHILS % (AUTO) 0.9 %; EOSINOPHILS # (AUTO) 0.2 10^3/uL (0.0-0.7); EOSINOPHILS % (AUTO) 1.6 %; HGB - HEMOGLOBIN 15.1 g/dL (14.0-18.0); LYMPHOCYTES # (AUTO) 1.9 10^3/uL (1.5-3.5); MEAN CORPUSCULAR HEMOGLOBIN 31.1 pg (27.0-31.0); MEAN CORPUSCULAR HGB CONC 35.1 g/dL (32.0-36.0); MEAN CORPUSCULAR VOLUME 88.5 fL (80.0-94.0); MEAN PLATELET VOLUME 9.9 fL (7.4-11.4); MONOCYTES # (AUTO) 0.8 10^3/uL (0.0-1.0); MONOCYTES % (AUTO) 7.6 %; NEUTROPHILS # (AUTO) 7.5 10^3/uL (1.5-6.6); NEUTROPHILS % (AUTO) 71.3 %; PLT - PLATELET COUNT 191 10^3/uL (130-450); RED BLOOD COUNT 4.86 10^6/uL (4.70-6.10); RED CELL DISTRIBUTION WIDTH 12.2 % (12.0-15.0); WHITE BLOOD COUNT 10.5 x10^3/uL (4.8-10.8)
[2024-04-30 16:44] LABS: ALBUMIN 4.4 g/dL (3.2-5.5); ALBUMIN/GLOBULIN RATIO 1.9 (1.0-2.2); BILIRUBIN,TOTAL 0.8 mg/dL (0.2-1.0); CALCIUM 9.7 mg/dL (8.5-10.3); POTASSIUM 3.6 mmol/L (3.5-4.5); TOTAL PROTEIN 6.7 g/dL (6.4-8.9)
[2024-04-30 16:51] LABS: VBG BASE EXCESS -0.3 mmol/L (-2 - +2); VBG OXYGEN SATURATION 89.7 % (60-80); VBG PCO2 43.1 mmHg (41-51); VBG PH 7.381 (7.31-7.41); VBG PO2 56.8 mmHg (25-47); VBG TOTAL CO2 26.3 mmol/L (24-29)
[2024-04-30 17:22] LABS: BILIRUBIN,URINE NEGATIVE (NEGATIVE); GLUCOSE, URINE (UA) >=1000 mg/dL (NEGATIVE); KETONES,URINE (UA) NEGATIVE (NEGATIVE); LEUKOCYTE ESTERASE, URINE NEGATIVE (NEGATIVE); NITRITE,URINE NEGATIVE (NEGATIVE); OCCULT BLOOD,URINE NEGATIVE (NEGATIVE); PH,URINE 6.5 PH (5.0-7.5); PROTEIN,URINE NEGATIVE (NEGATIVE); UROBILINOGEN,URINE 0.2 (NORMAL) E.U./dL (NORMAL)
[2024-04-30 17:29] LABS: CLARITY,URINE CLEAR (CLEAR)
[2024-04-30] MEDS: INSULIN REGULAR, HUMAN 300 UNIT/3 ML PEN IVP STA ×2 (17:38→18:54)
[2024-04-30] MEDS: INSULIN REGULAR IN 0.9 % NS 100 UNIT/100 ML BAG IV SCH (17:51)
--- NOTE | 2024-04-30 19:59 | ED Physician Documentation ---
ED Addendum - Addendum Addendum: 04/30/24 19:58 Care signed out to me by Dr. De La Paz at shift change pending improvement in his blood sugars. He has received 2 doses of IV insulin as well as some IV fluids and on last blood sugar check it was 347. Seen and examined at the bedside. He appears well and has no specific complaints at this juncture. Given the height of his blood sugar I recommended to him that we start low-dose long-acting insulin or he could restart his Trulicity with some laxatives to address the bowel problems he has been having with the Trulicity that made him stop the Trulicity in the first place. He declined both. He feels like his blood sugars were high today because of poor dietary choices and plans to eat better and follow-up with his doctor. Disposition: Discharged home Condition: Stable
[2024-04-30 20:09] VITALS: BP 166/82; O2SAT 100
== END 2024-04-30 20:06 | disposition home or self-care (01) ==
LOC: ED 15:19
DX: E11.65 Type 2 diabetes mellitus with hyperglycemia (principal); E86.0 Dehydration; J44.9 Chronic obstructive pulmonary disease, unspecified; I10 Essential (primary) hypertension; G47.30 Sleep apnea, unspecified; Z79.85 Long-term (current) use of injectable non-insulin antidiabetic drugs
CPT/HCPCS: 36415; 80053; 81001; 81003; 82009; 82803; 83690; 85025; 87086; 96360; 99284